=== PATIENT | male | born 1930 | race Caucasian/White ===

== ENCOUNTER 2018-09-07 04:51 | Inpatient (IN) | payer MEDICARE, OTHER ==
[2018-09-07] MEDS ORDERED: Heparin DRIP 25,000 UNITS(*) 25,000 UNITS/500 ML BAG IV SCH ×2 (05:00→06:15)
[2018-09-07 05:32] LABS: ABS Basophils 0.1 10^3/ul (0-0.2); ABS Eosinophils 0 10^3/ul (0-0.6); ABS Lymphocytes 1.5 10^3/ul (1.0-4.8); ABS Monocytes 0.9 10^3/ul (0-0.8); ABS Neutrophils 15.2 10^3/ul (1.5-7.7); ABS Nucleated RBC 0 10^3/ul; Eosinophil % 0.1 %; Hematocrit 37 % (42-52); Hemoglobin 12.2 g/dl (14.0-18.0); Lymphocyte % 8.2 %; Mean Corpuscular HGB Conc 33 g/dl (31-36); Mean Corpuscular Hemoglobin 28 pg (27-31); Mean Corpuscular Volume 86 fL (80-94); Mean Platelet Volume 8.7 fL (7.4-10.4); Nucleated Red Blood Cells % 0; Platelet Count 176 10^3/ul (150-450); Red Blood Count 4.34 10^6/ul (4.00-5.40); Red Cell Distribution Width 14 % (10.5-15); White Blood Count 17.7 10^3/ul (3.5-10.8)
[2018-09-07] MEDS ORDERED: NS 0.9% 1000 ML** 1,000 ML IV.FLUID IV ONE (05:44)
--- NOTE | 2018-09-07 05:47 | ED ---
Complex/Multi-Sys Presentation - HPI Summary HPI Summary: This patient is a 87 year old male brought to the ED by ambulance from [facility] in order to be admitted. The patient originally went there for a fever. He was found to have pna and elevated heart enzymes. He denies CP, he does have history of stents. He c/o sob. Given zithroax and losartin - History Of Current Complaint Chief Complaint: EDChestPainROMI Time Seen by Provider: 09/07/18 04:52 Hx Obtained From: Patient, EMS Onset/Duration: Still Present Timing: Constant Severity Currently: Moderate Severity Initially: Moderate Associated Signs And Symptoms: Positive: Fever, Other - SOB - Allergies/Home Medications Allergies/Adverse Reactions: Allergies Allergy/AdvReac Type Severity Reaction Status Date / Time No Known Allergies Allergy Verified 03/16/13 05:05 Home Medications: Home Medications Metoprolol Tartrate TAB* 25 mg PO DAILY 09/07/18 [History Confirmed 09/07/18] Simvastatin TAB(NF) 80 mg PO DAILY 09/07/18 [History Confirmed 09/07/18] PMH/Surg Hx/FS Hx/Imm Hx Cardiovascular History: Reports: Hx Coronary Artery Disease Respiratory History: Reports: Hx Pneumonia Neurological History: Denies: Hx Dementia, Hx Developmental Delay, Hx Headaches, Hx Migraine, Hx Nerve Disease, Hx Seizures, Hx Spinal Cord Injury, Hx Transient Ischemic Attacks (TIA), Other Neuro Impairments/Disorders Psychiatric History: Denies: Hx Suicide Attempt Infectious Disease History: No Infectious Disease History: Denies: Hx Clostridium Difficile, Hx Hepatitis, Hx Human Immunodeficiency Virus (HIV), Hx of Known/Suspected MRSA, Hx Shingles, Hx Tuberculosis, Hx Known/ Suspected VRE, Hx Known/Suspected VRSA, History Other Infectious Disease, Traveled Outside the [place] in Last 30 Days - Family History Known Family History: Negative: Diabetes, Respiratory Disease - Social History Alcohol Use: Occasionally Hx Substance Use: No Substance Use Type: Reports: None Hx Tobacco Use: No Smoking Status (MU): Never Smoked Tobacco Review of Systems Positive: Fever Negative: Chest Pain Positive: Shortness Of Breath All Other Systems Reviewed And Are Negative: Yes Physical Exam - Summary Physical Exam Summary: Appearance: Well appearing, no pain distress Skin: warm, dry, reflects adequate perfusion Head/face: normal Eyes: EOMI, RAMA ENT: normal Neck: supple, non-tender Respiratory: CTA, breath sounds present Cardiovascular: RRR, pulses symmetrical Abdomen: non-tender, soft Musculoskeletal: normal, strength/ROM intact Neuro: normal, sensory motor intact, A&Ox3 Triage Information Reviewed: Yes Vital Signs On Initial Exam: Initial Vitals Temp Pulse Resp BP Pulse Ox 98.6 F 73 18 113/55 95 09/07/18 05:03 09/07/18 05:03 09/07/18 05:03 09/07/18 05:03 09/07/18 05:03 Vital Signs Reviewed: Yes Diagnostics - Vital Signs Vital Signs Temp Pulse Resp BP Pulse Ox 09/07/18 05:03 98.6 F 73 18 113/55 95 - Laboratory Lab Results: Lab Results 09/07/18 Range/Units 05:23 WBC 17.7 H (3.5-10.8) 10^3/ul RBC 4.34 (4.00-5.40) 10^6/ul Hgb 12.2 L (14.0-18.0) g/dl Hct 37 L (42-52) % MCV 86 (80-94) fL MCH 28 (27-31) pg MCHC 33 (31-36) g/dl RDW 14 (10.5-15) % Plt Count 176 (150-450) 10^3/ul MPV 8.7 (7.4-10.4) fL Neut % (Auto) 86.0 % Lymph % (Auto) 8.2 % [place] % (Auto) 5.3 % Eos % (Auto) 0.1 % Baso % (Auto) 0.4 % Absolute Neuts (auto) 15.2 H (1.5-7.7) 10^3/ul Absolute Lymphs (auto) 1.5 (1.0-4.8) 10^3/ul Absolute Monos (auto) 0.9 H (0-0.8) 10^3/ul Absolute Eos (auto) 0 (0-0.6) 10^3/ul Absolute Basos (auto) 0.1 (0-0.2) 10^3/ul Absolute Nucleated RBC 0 10^3/ul Nucleated RBC % 0 Result Diagrams: 09/07/18 05:23 09/07/18 05:23 Lab Statement: Any lab studies that have been ordered have been reviewed, and results considered in the medical decision making process. - EKG 0547 Cardiac Rate: NL EKG Rhythm: Sinus Rhythm - at 67 BPM Summary of EKG Findings: RBBB Complex Multi-Symp Course/Dx Assessment/Plan: This patient is a 87 year old male brought to the ED by ambulance from [facility] in order to be admitted. The patient originally went there for a fever. He was found to have pna and elevated heart enzymes. He denies CP, he does have history of stents. He c/o sob. Given zithroax and losartin. I discussed patient care with Dr. Guaman and he recommended a heparin drip, dextrose, and ASA. The patient was given these . Blood work obtained. I reviewed the chart and results from his visit at [facility]. I discussed the case with the hospitalist, Dr. Singh and she has accepted the patient for admission. The patient will be admitted - Diagnoses Differential Diagnoses/HQI/PQRI: Cardiac Ischemia, Sepsis, Other - mi/pneumonia Provider Diagnoses: PNA (pneumonia), ACS (acute coronary syndrome), Sepsis associated hypotension - Critical Care Time Critical Care Time: 30-74 min Discharge - Sign-Out/Discharge Documenting (check all that apply): Patient Departure - admitted Patient Received Moderate/Deep Sedation with Procedure: No - Discharge Plan Condition: Fair Disposition: ADMITTED TO [facility] Referrals: No Primary Care Phys,NOPCP [Primary Care Provider] - - Billing Disposition and Condition Condition: FAIR Disposition: Admitted to [facility] - Attestation Statements Document Initiated by Dorise: Yes Documenting Scribe: Levy Bonds Provider For Whom Christos is Documenting (Include Credential): De Castellano MD Scribe Attestation: Levy Saunders , scribed for De Castellano MD on 09/07/18 at 0642. Scribe Documentation Reviewed: Yes Provider Attestation: The documentation as recorded by the Levy howard accurately reflects the service I personally performed and the decisions made by De alcantara MD Status of Scribe Document: Viewed
[2018-09-07 05:51] LABS: BUN/Creatinine Ratio 21.9 (8-20); Calcium 10.3 mg/dL (8.6-10.3); EGFR African American 64.2 (>60); Potassium 4.2 mmol/L (3.5-5.0)
[2018-09-07 06:00] LABS: Troponin I 4.72 ng/mL (<0.04)
[2018-09-07] MEDS ORDERED: Heparin DRIP 25,000 UNITS(*) 25,000 UNITS/500 ML BAG ONE (06:06)
[2018-09-07] MEDS ORDERED: NS 0.9% 1000 ML** 1,000 ML IV SCH (09:00)
[2018-09-07] MEDS ORDERED: Perflutren Lipid Microsphere* 3 ML VIAL ONE (09:52)
--- NOTE | 2018-09-07 10:28 | ECHO ---
Patient: JORGE URIBE [facility] Rec#: [id number] : 1930 Date: 09/07/2018 Age: 87y Height: 183 cm / 72.0 in Weight: 81 kg / 178.5 lbs Sex: M BSA: 2.03 Room#: ED8 Admit Date#: 09/07/2018 Type: Inpatient Referring: De Castellano Reading: Kelby Guaman DO Educational Assistant Teacher: Opal Hilario RDCS CC: Ernestine Biggs MD Transthoracic Echocardiogram Indication: OK BP: 92/46 HR: 66 Rhythm: NSR Findings History: CAD,s/pPCI,former smoker. Technical Comments: The study quality is good. Completed at 0827. Definity used to enhance images. Left Ventricle: The left ventricular chamber size is normal. Mild concentric left ventricular hypertrophy is observed. There is normal left ventricular systolic function. The estimated ejection fraction is 55-60%. with basal to mid inferior hypokinesis Abnormal left ventricular diastolic function is observed. Left Atrium: The left atrium is mildly dilated. Right Ventricle: The right ventricular cavity size is normal. The right ventricular global systolic function is mildly reduced. Right Atrium: The right atrium is mild to moderately dilated. Aortic Valve: The aortic valve is trileaflet. There is a trace of aortic regurgitation. There is no evidence of aortic stenosis. Mitral Valve: The mitral valve leaflets are mildly thickened. There is trace to mild mitral regurgitation. There is no evidence of mitral stenosis. Tricuspid Valve: The tricuspid valve leaflets are normal. There is trace tricuspid regurgitation. Unable to estimate the right ventricular systolic pressure. There is no tricuspid stenosis. Pulmonic Valve: The pulmonic valve appears normal. There is no evidence of pulmonic regurgitation. There is no pulmonic stenosis. Pericardium: The pericardium is not well visualized. Aorta: There is no dilatation of the aortic arch. There is no dilation of the aortic root. Pulmonary Artery: The main pulmonary artery is not well visualized. Venous: The venous system is not well visualized. Contrast: Definity was used to optimize study. A total of 3.5ml used. Intravenous contrast was used to enhance endocardial border definition. Conclusions The left ventricular chamber size is normal. Mild concentric left ventricular hypertrophy is observed. There is normal left ventricular systolic function. The estimated ejection fraction is 55-60% with basal to mid inferior hypokinesis The left atrium is mildly dilated. The right ventricular cavity size is normal. The right ventricular global systolic function is mildly reduced. No significant valvular abnormalities noted Unable to estimate the right ventricular systolic pressure. Definity was used to optimize study. Compared to prior study from 06/2017, the RV function is now mildly hypokinetic Measurements Name Value Normal Range RVIDd (AP) 2D 3.2 cm (0.9 - 2.6) RVDdMajor (2D) 3.4 cm (2.2 - 4.4) RAd ISD 4CH 6.1 cm (3.4 - 4.9) RA (A4C)W 5 cm (2.9 - 4.6) IVSd (2D) 1.3 cm (0.6 - 1) LVPWd (2D) 1.3 cm (0.6 - 1) LVIDd (2D) 3.8 cm (3.6 - 5.4) LVIDs (2D) 3.1 cm - LV FS (2D) 18 % (25 - 45) Aortic Annulus 2.2 cm (1.4 - 2.6) Ao root diameter (2D) 3.2 cm (2.1 - 3.5) Ascending Ao 3.5 cm (2.1 - 3.4) Aortic arch 2.9 cm (1.8 - 3.4) Descending Ao 0.5 cm - LA dimension (AP) 2D 4.3 cm (2.3 - 3.8) LAd ISD 4CH 5.8 cm (2.9 - 5.3) LA ISD 4CH W 4 cm (2.5 - 4.5) Name Value Normal Range LA ESV SP 4CH (A/L) 29 ml - LA ESV SP 2CH (A/L) 28 ml - LA ESV BP (A/L) index 28.6 ml/m2 - Name Value Normal Range MV E-wave Vmax 0.8 m/sec - MV deceleration time 211 msec - MV A-wave Vmax 0.7 m/sec - MV E:A ratio 1.1 ratio - LV septal e' Vmax 0.5 m/sec - LV lateral e' Vmax 0.08 m/sec - LV E:e' septal ratio 16 ratio - LV E:e' lateral ratio 10 ratio - Name Value Normal Range AV Vmax 14.3 m/sec - AV VTI 27.4 cm - AV peak gradient 7 mmHg - AV mean gradient 4 mmHg - LVOT Vmax 0.9 m/sec - LVOT VTI 21.7 cm - LVOT peak gradient 3 mmHg - LVOT mean gradient 1 mmHg - Name Value Normal Range PV Vmax 0.7 m/sec - PV peak gradient 2 mmHg -
[2018-09-07] MEDS ORDERED: Clopidogrel TAB* 300 MG PO ONE (10:32)
[2018-09-07] MEDS: Metoprolol Tartrate TAB* 25 MG PO SCH ×3 (11:08→23:37)
--- NOTE | 2018-09-07 12:51 | HP ---
HISTORY AND PHYSICAL: DATE OF ADMISSION: 09/07/18 ADMITTING PROVIDER: Jamal Mendez MD CONSULTING CHAIRMAN: Dr. Kelby Guaman. PRIMARY CARE PHYSICIAN: Dr. Ernestine Biggs. CHIEF COMPLAINT: Rigors, fever, chills, epigastric pain radiating to the back. HISTORY OF PRESENT ILLNESS: Romulo Bradley is an 87-year-old male with past medical history of CAD with stents to the LAD and RCA in 2012, peripheral vascular disease, hypertension, hyperlipidemia, and at least a 100-pack year former smoker. He is notably a poor historian, but reports that he developed fevers, chills and then rigors around 10 p.m. the day before admission and presented to the [facility] where he had elevated troponin of 1.86 and chest x-ray concerning for potential pneumonia. He was transferred to [facility] for further evaluation and referred to the hospitalist service for admission. His second troponin here was 4.72 and ED physicians talked to [employer] Operator Dr. Kelby Guaman, who recommended initially a heparin drip and aspirin. The patient says that he had his friend, Musa, check his temperature and it was eventually as high as 100.8. He complains of "croup" which he more specifically means a mild burning sensation in his epigastric or lower chest that radiated to his back that has since resolved and he is frankly rather unclear on the timing of this. Musa, his friend also noted that he seemed more pale. He initially had a leukocytosis of 20.5 at [place] where he was started on ceftriaxone and azithromycin there along with aspirin 325mg. He has been put on heparin drip. He has since gotten repeat troponin of 5.51 and transthoracic echocardiogram, which is demonstrating preserved EF 55% to 60% with basal to mid inferior hypokinesis, unchanged from prior. He is denying any chest pain or shortness of breath at this time. He did not get a flu shot this year. Denies sick contacts. Last A1c was 6.6 in September 2017, LDL 47, HDL 36 at [address] Howard on 12/15/17, at that point she believed he was on aspirin 81 mg daily. He denies that he is taking this currently. He does not know who stopped it or cannot give reasons why it was stopped. Repeat chest x-ray here was read as cardiomegaly with bibasilar atelectasis, right lower lobe pneumonia is not excluded. He is afebrile and lactic acid is 1.3. PAST MEDICAL HISTORY: CAD with RCA stent, LAD stent, 2012; hyperlipidemia; hypertension; adn-tmyyaev-pylnqnpbk diabetes mellitus with A1c 6.6 in September 2017; peripheral vascular disease; as well as some [id number]-cqwpilaj carotid artery disease and reported abdominal bruits in the past. MEDICATIONS: Include: 1. Metoprolol 25 mg daily. 2. A statin, he does not know which one, but previously was on simvastatin 80 mg, Dr. Howard's office. ALLERGIES: No known drug allergies. FAMILY HISTORY: His father of myocardial infarction in his 70s. His mother lived to be 110, of old age. SOCIAL HISTORY: The patient is a former smoker, quit at age 61, smoked between his late teens until then 2 to 3 packs per day, approximately 100-pack year. Denies alcohol use, drug use. He is accompanied by his son, Damion. He desires to be a full code. REVIEW OF SYSTEMS: A complete 14-point review of systems negative except as per HPI. He has a cough that was nonproductive. PHYSICAL EXAMINATION GENERAL APPEARANCE: No acute distress. VITAL SIGNS: Temperature 98.4, heart rate 62, respiratory rate 20, satting 95% on 2 L, blood pressure 104/51. HEENT: Normocephalic, atraumatic. Pupils are equal, round, and reactive to light. Extraocular motions intact. No scleral icterus. LUNGS: Clear to auscultation bilaterally with no wheezing, rales, or rhonchi. CARDIOVASCULAR: Regular rate and rhythm with no murmurs, rubs, or gallops. ABDOMEN: Soft, nontender, nondistended. EXTREMITIES: Warm and well perfused. No peripheral edema. NEURO: Cranial nerves II through XII intact. Moving all extremities. SKIN: No lesions. No rashes. DIAGNOSTIC STUDIES/LAB DATA: White count 17.7, hemoglobin 12.2, hematocrit 37 , platelets 176. Sodium 135, potassium 4.2, chloride 104, carbon dioxide 23, BUN 28, creatinine 1.28, glucose 159, lactic acid 1.3. Troponin 1.8 -> 4.72 -> 5.51. Calcium 10.3. Imaging: Chest x-ray demonstrates cardiomegaly with bibasilar atelectasis, right lower lobe pneumonia is not excluded. His transthoracic echocardiogram has since been performed, shows EF of 55% to 60 % with basal to mid inferior hypokinesis(unchanged). No significant valvular abnormalities. RV function is now mildly hypokinetic compared to last in June 2017. The EKG demonstrates right bundle branch block, normal sinus rhythm, T-wave inversions inferiorly. No ST elevations or depressions. Similar to prior. Heart rate 67, left axis deviation, QTc of 433. ASSESSMENT AND PLAN: Romulo Bradley is an 87-year-old male with past medical history of hypertension; coronary artery disease, status post LAD and RCA stents ; shx-thmypzm-pednsbows diabetes mellitus; peripheral vascular disease; 100- pack year former smoker, presenting with rigors, fevers, chills, leukocytosis and chest x-ray concerning for possible right-sided pneumonia, also complaint ( though of unclear timeline) of epigastric pain radiating to his back associated with mild burning that has since resolved, troponin elevation now up to 5.5. Appreciate recommendations from Dr. Kelby Guaman, who recommended heparin drip. He is now recommended cessation of that after the echocardiogram was done and evaluation of the EKG and starting him on Plavix 300 mg daily now and then 75 mg daily for at least 30 days with consideration for stress test as an outpatient. For his pneumonia, we will continue him on ceftriaxone and azithromycin. For the non-ST elevation myocardial infarction,add metoprolol 25 mg p.o. q.6 hours, Lipitor 80 mg daily and baby aspirin daily, telemetry. For the pneumonia he has no lactic acidosis; systemic inflammatory response syndrome criteria include leukocytosis but otherwise does not meet. Will continue on ceftriaxone and azithromycin, get a sputum culture. Get Physical Therapy to see him likely tomorrow Given his peripheral vascular disease, vascular risk factors and his epigastric abdominal pain radiating to his back that has since resolved, I have ordered an abdominal aortic ultrasound to rule out ectasia (Addendum: US department would not do this study given his primary diagnosis of pneumonia/NSTEMI and recommended outpatient evaluation instead). He does have elevated creatinine of 1.28 above his baseline of 1, GFR is currently 53. I would like to avoid IV contrast unless necessary. We will get CBC, BMP daily, and troponins. We will trend those until peak, appreciate any additional Cardiology recommendations. He is a full code and his next of kin is Marty Bradley, his ; also at bedside is his son, Damion. [id number]/[facility] #: [id number] RACIEL
--- NOTE | 2018-09-07 14:13 | CONSULT ---
Subjective Date of Service: 09/07/18 Interval History: Date of consult 09/07/2018 Primary Care Physician: Ernestine Biggs MD Regional Account Executive: Dr. Roxanne Howard CC: Cough, fever Reason for consult: Abnormal troponin level CC: Romulo Bradley is an 87 year old man with a history as below who was admitted with progressive fever, cough non-productive, chest/back pain, rigors associated with uncontrolled urine. He was found with a right lower lobe pneumonia. He states his symptoms did not at all resemble his 03/2013 SD in which he had arm discomfort as presenting symptom and this was supported by review of prior documentation. He was found with an abnormal troponin level. I had an extensive conversation with the patient and his son at bedside and his about the clinical relevance of this finding. He has received IV antibiotics and fluids and is feeling better. He is eating lunch and was able to ambulate to the bathroom without symptoms. Prior this admission he has been at his baseline health status. PMHx: CAD, SD s/p PCI PAD HTN Dyslipidemia Anemia Allergies: No Known Drug Allergy 07/09/13 allergy list reviewed on 12/15/2017 FH: Negative For Coronary Artery Disease (CAD). Father: Pacemaker Negative For Coronary Artery Disease (CAD) - Family hx of longevity. 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 Personal Habits: Smoking: Patient is a former smoker - quit smoking cigarettes in 1991.Alcohol: Rarely consumes alcohol - 1-2 times a year.Drug Use: Denies Drug Use. Medications Active Medications: Aspirin (Aspirin 81 Mg Chew Tab*) 81 mg PO DAILY [facility] Atorvastatin Calcium (Lipitor*) 80 mg PO 1700 [facility] Clopidogrel Bisulfate (Plavix Tab*) 75 mg PO DAILY MELVI Had been on heparin gtt earlier this AM Was given 300 mg po of plavix x 1 earlier today Ceftriaxone Sodium 1 gm/ (Sodium Chloride) 50 mls @ 200 mls/hr IVPB Q24H [facility] Azithromycin 500 mg/ Sodium (Chloride) 250 mls @ 250 mls/hr IVPB Q24H [facility] Sodium Chloride (Ns 0.9% 1000 Ml) 1,000 mls @ 125 mls/hr IV PER RATE [facility] Stop: 09/07/18 18:59 Metoprolol Tartrate (Lopressor Tab*) 25 mg PO Q6H [facility] Last Admin: 09/07/18 11:08 Dose: 25 mg Home Medications: aspirin 81 mg lipitor 40 mg once a day toprol 25 mg po daily at night Review of Systems - Measurements Intake and Output: Intake and Output Last 24 Hours 09/05/18 09/06/18 09/07/18 09/08/18 06:59 06:59 06:59 06:59 Intake Total 2450 Balance 2450 Weight 180 lb Intake: IV Fluids 2450 - Review of Systems Constitutional Symptoms: Positive: Weakness, Fatigue, Fever Dermatology: Negative: Rash, Skin Lesions HEENT: Positive: Change in Hearing Negative: Vertigo, Tinnitus, Sinus Problem Eyes: Negative: Change in Vision, Double Vision Thyroid: Negative: Primary Hypothyroidism, Primary Hyperthyroidism, Weight Loss, Weight Gain Pulmonary: Positive: Cough, Respiratory Distress, Shortness of Breath Negative: Sputum, Hemoptysis, Wheezing, COPD, Asthma, Home Oxygen Cardiology: Positive: Chest Pain, Shortness of Breath Negative: Palpitations, Swelling of Ankles, Peripheral Vascular Dis, Edema, Faintness, Syncope, Claudication, Paroxysmal Nocturnal Dyspnea, Orthopnea Gastroenterology: Negative: Abdominal Pain, Nausea, Vomiting, Haematemesis, Melena Genital - Urinary: Negative: Dysuria, Hematuria Musculoskeletal: Negative: Joint Pain, Joint Stiffness, Joint Deformities, Kyphoscoliosis Endocrinology: Negative: Polydipsia, Polyuria Hematologic/Lymphatic: Positive: Use of Antiplatelet Drugs Negative: Hx Leukemia, Hx Lymphoma, Use of Anticoagulant Neurology: Negative: Diplopia, Dizziness, Hx of Stroke\TIA, Hx Seizures Psychiatry: Negative: Unusual Anxiety, Suicidal Ideation Allergic/Immunologic: Negative: Hx Anaphylaxis, Hx Angioedema, Hx HIV, Immunocompromise Review of Systems Statement: All other review of systems negative, unless stated above. Objective Vital Signs: Temp Pulse Resp BP Pulse Ox 98.4 F 56 20 104/51 95 09/07/18 10:29 09/07/18 10:29 09/07/18 10:29 09/07/18 10:29 09/07/18 10:29 Appearance: nad, not toxic appearing Ears/Nose/Mouth/Throat: Clear Oropharnyx, Mucous Membranes Moist Neck: NL Appearance and Movements; NL JVP, Trachea Midline Respiratory: - - mild tachypnea with no increased work of breathing, conversant , prominent coarse crackles R lower lung field Cardiovascular: RRR, No Edema, - - no significant murmur Abdominal: NL Sounds; No Tenderness; No Distention Extremities: No Edema Skin: No Rash or Ulcers Neurological: Alert and Oriented x 3 Laboratory Results: 09/07/18 05:23 09/07/18 05:23 APTT 63.3 seconds (26.0-36.3) H 09/07/18 10:51 09/07/18 09/07/18 09/07/18 05:23 09:02 12:28 Troponin I 4.72 H* 5.51 H* 3.67 H* 09/27/2017 showed total cholesterol 104, triglycerides 104, LDL cholesterol 47, HDL cholesterol 36, and CK 66. Sodium 140, potassium 4.5, glucose 109, BUN 17, creatine 1.01, AST of 15. White count 7.5, hemoglobin 15.3, hematocrit 46, and platelets 173. hemoglobin A1C 6.6. Diagnostic Imaging: Echocardiogram - (07/06/2017) EF 50-55%, IW scar, mild MR. Echocardiogram - (03/17/2013) EF 45%, IW akinesis, moderate MR. Carotid Doppler - (04/02/2013) Mod TAY, mild LICA Cardiac Procedures: Cardiac Catheterization - (03/15/2013) s/p PCI to RPL branch (received collaterals from non-dominant Lcx) and pRCA (culprits) Cardiac Catheterization - (03/18/2013) Staged PCI to prox-mid LAD Reviewed films with Dr. Diallo, has residual borderline significant but not suitable for PCI small vessel diagonal/septal/distal RCA disease cxr 09/07/2018: Cannot exclude RLL pneumonia Echo 09/07/2018: LVEF 55-60% basal-mid inferior wall hypokinesis (unchanged from 06/2017(, mild RV dysfunction (new since 06/2017), no significant valvular abnormalities noted EKG Data: EKG 09/07/2018: NSR, LAE, RBBB, old IWMI, grossly unchanged on repeat and grossly unchanged from prior on 06/2017 Assessment/Plan 1. Type 2 SD - No angina (arm discomfort), hemodynamic instability, or arrhythmias - Enzymatically small, echo and EKG unchanged from prior, LVEF overall normal - Secondary to #2 2. RLL pneumonia 3. History of anemia, details uncertain - No active bleeding 4. Other medical history as above - Would continue [employer] aspirin, statin and beta-yamileth - Would add plavix 75 mg po daily for at least a month and preferably a year if no contraindications - Patient should follow up with Dr. Howard after discharge. Once further recovered from pneumonia can consider an ischemic evaluation as an outpatient. Thank you for allowing me to participate in the cardiovascular care of this patient. Please do not hesitate to contact me with questions or concerns.
[2018-09-07] MEDS ORDERED: Atorvastatin* 80 MG TAB PO SCH (17:00)
[2018-09-07] MEDS ORDERED: Azithromycin IV(*) 500 MG in NS 0.9% 250 ML* 250 ML IVPB SCH (20:00)
[2018-09-07] MEDS ORDERED: cefTRIAXone(*) 1 GM in NS 0.9% 50 ML* 50 ML IVPB SCH (21:00)
[2018-09-08] MEDS: Metoprolol Tartrate TAB* 25 MG PO SCH ×2 (05:20→10:53)
[2018-09-08 05:29] LABS: ABS Basophils 0 10^3/ul (0-0.2); ABS Eosinophils 0.1 10^3/ul (0-0.6); ABS Lymphocytes 1.2 10^3/ul (1.0-4.8); ABS Monocytes 0.7 10^3/ul (0-0.8); ABS Neutrophils 7.8 10^3/ul (1.5-7.7); ABS Nucleated RBC 0 10^3/ul; Eosinophil % 1.2 %; Hematocrit 36 % (42-52); Hemoglobin 11.7 g/dl (14.0-18.0); Lymphocyte % 12.2 %; Mean Corpuscular HGB Conc 33 g/dl (31-36); Mean Corpuscular Hemoglobin 29 pg (27-31); Mean Corpuscular Volume 87 fL (80-94); Mean Platelet Volume 8.9 fL (7.4-10.4); Nucleated Red Blood Cells % 0; Platelet Count 156 10^3/ul (150-450); Red Cell Distribution Width 15 % (10.5-15); White Blood Count 9.8 10^3/ul (3.5-10.8)
[2018-09-08 05:34] LABS: BUN/Creatinine Ratio 20.8 (8-20); Calcium 9.7 mg/dL (8.6-10.3); EGFR African American 79.8 (>60); EGFR Non-African American 65.9 (>60); Potassium 4.2 mmol/L (3.5-5.0)
[2018-09-08] MEDS ORDERED: Clopidogrel TAB* 75 MG PO SCH (09:00)
[2018-09-08] MEDS ORDERED: Aspirin 81 mg CHEW TAB* 81 MG TAB.CHEW PO SCH (09:00)
[2018-09-08 11:53] VITALS: BP 146/43
--- NOTE | 2018-09-08 16:29 | DS ---
DISCHARGE SUMMARY: DATE OF ADMISSION: 09/07/18 DATE OF DISCHARGE: 09/08/18 ATTENDING PROVIDER: Jamal Mendez MD CONSULTING SECURITIES TRADER: Kelby Guaman DO PRIMARY CARE PHYSICIAN: Dr. Ernestine Biggs. OUTPATIENT SECURITIES TRADER: Dr. Roxanne Howard. CHIEF COMPLAINT: Rigors, fevers, chills, brief epigastric pain radiating to the back. PRINCIPAL DIAGNOSES: Sepsis secondary to Pneumonia; non-ST elevation myocardial infarction. HISTORY OF PRESENT ILLNESS AND HOSPITAL COURSE: Rmoulo Bradley is an 87-year- old male with past medical history of CAD with stents to the LAD and RCA in 2013 , peripheral vascular disease, hypertension, hyperlipidemia, former (100 pack year) smoker. Please see H&P for full details, but notably he is a poor historian, but developed fevers, chills, rigors, and presented to [facility] on 09/06/18. There he had a chest x-ray, which was reportedly concerning for potential pneumonia. There he had a leukocytosis at 20, fevers in the low 100s and the troponin elevation at 1.86. Given that troponin elevation, he was transferred [facility] for further access to the cardiology evaluation, which was obtained with Dr. Kelby Guaman, who initially recommended heparin drip. He got aspirin, continued statin, continued beta-blockers. Troponin eventually peaked at 5.5. He denied any chest pain. He did give an unclear history of some epigastric or lower chest pain radiating to his back that had resolved by the time he got here. He got ceftriaxone, azithromycin at [place] that was continued here. His leukocytosis resolved by hospital day #2 here, he is on room air, afebrile. Strep Legionella urine antigens were negative. He has not been able to provide a sputum sample. Blood cultures where not obtained here as he had already gotten antibiotics at the outside hospital and was afebrile here. He had no ischemic EKG changes and he got a transthoracic echocardiogram which showed ejection fraction of 55% to 60% with basal to mid inferior hypokinesis, unchanged from prior studies and some right ventricular global systolic function mildly reduced, which is new from prior studies. No significant valvular abnormalities. He worked with physical therapy, was able to ambulate at his baseline and transfer stairs. Dr. Guaman recommended for a suspected type 2 demand ischemia NSTEMI, initiation of Plavix , he got loaded 300 mg and 75 mg daily thereafter for at least 30 days, but potentially up to a year and consideration for further ischemic evaluation as an outpatient could be entertained by Dr. Howard. Notably, he was not taking his baby aspirin for unclear reason. His last outpatient electrical parts reconditioner's note from Dr. Howard from December 2017 seem to indicate he should be on that at that time. He had a slight bump in his creatinine to 1.8 on admission, improved to 1.06 on day of discharge. DISCHARGE MEDICATIONS: Include: 1. Aspirin 81 mg daily (new). 2. Plavix 75 mg daily (new). 3. Augmentin 875 mg p.o. b.i.d. for 10 tablets or 5 days (new). 4. Azithromycin 250 mg p.o. daily for 3 days (new). 5. Metoprolol tartrate 25 mg daily. 6. Simvastatin 80 mg daily. DISCHARGE DIET: Carbohydrate consistent, heart healthy, unchanged. FOLLOWUP: Please follow up with Dr. Ernestine Biggs, his PCP within the 4 to [address] Roxanne Howard within 1 to 2 weeks. I do recommend a potential consideration for abdominal ultrasound to rule out abdominal aortic aneurysm, given the transient epigastric pain radiating to his back. This was initially ordered here in the hospital, but was not considered to be reimbursable and therefore it was not performed by the radiology department. TIME SPENT: Time spent on discharge was 35 minutes. [id number] #: [id number] MTDD
== END 2018-09-08 16:11 | disposition home or self-care (01) | DRG 871 ==
LOC: ED 04:51 → MEDTELE 07:53
PROVIDERS: ADMIT Internal Medicine; ATTEND Internal Medicine
DX: A41.9 Sepsis, unspecified organism (principal); I21.A1 Myocardial infarction type 2; J18.1 Lobar pneumonia, unspecified organism; I25.10 Atherosclerotic heart disease of native coronary artery without angina pectoris; I10 Essential (primary) hypertension; E11.51 Type 2 diabetes mellitus with diabetic peripheral angiopathy without gangrene; I45.10 Unspecified right bundle-branch block; E78.5 Hyperlipidemia, unspecified; Z87.891 Personal history of nicotine dependence; Z95.5 Presence of coronary angioplasty implant and graft; Z79.02 Long term (current) use of antithrombotics/antiplatelets; Z79.82 Long term (current) use of aspirin; Z82.49 Family history of ischemic heart disease and other diseases of the circulatory system; Z72.89 Other problems related to lifestyle
CPT/HCPCS: 36415; 71045; 80048; 83605; 84484; 85025; 85730; 87899; 93005; 93306; 99284; A9270-GY; C8929; G8978-GP-CI; G8979-GP-CI; G8980-GP-CI; J0456; J0696

== ENCOUNTER 2018-12-27 19:04 | Inpatient (IN) | payer MEDICARE ==
[2018-12-27] MEDS ORDERED: NS 0.9% 1000 ML** 1,000 ML IV.FLUID IV ONE (19:23)
--- NOTE | 2018-12-27 19:34 | ED ---
Dizziness - HPI Summary HPI Summary: Pt is an 88 y/o M presenting to the ED brought in by EMS for a fall. Per EMS, they were called for a lift assist by the patients roommate d/t multiple falls in the past couple of hours with increased weakness. Upon EMS arrival, they noted severe confusion of the pt. Per the pts son, he had PNA last year, and since being on the abx, he has had some issues with confusion and imbalance. Pt states he has been feeling up and down recently, with noted dizziness, nausea , and some leg pains that wake him up in the night. He denies headaches or vomiting. - History Of Current Complaint Chief Complaint: EDFever Stated Complaint: "FALL PER EMS" Time Seen by Provider: 12/27/18 19:17 Hx Obtained From: Patient Onset/Duration: Suddenly Timing: Hours Severity Initially: Moderate Severity Currently: Mild Character: Weak, Dizzy Aggravating Factor(s): Nothing Alleviating Factor(s): Nothing Associated Signs And Symptoms: Positive: Nausea, Unsteady Gait, Other: - confusion. Negative: Vomiting - Allergies/Home Medications Allergies/Adverse Reactions: Allergies Allergy/AdvReac Type Severity Reaction Status Date / Time No Known Allergies Allergy Verified 03/16/13 05:05 PMH/Surg Hx/FS Hx/Imm Hx Previously Healthy: Yes Cardiovascular History: Reports: Hx Coronary Artery Disease Denies: Hx Peripheral Vascular Disease Respiratory History: Reports: Hx Pneumonia Sensory History: Reports: Hx Contacts or Glasses, Hx Hearing Aid, Hx Hearing Problem Opthamlomology History: Reports: Hx Contacts or Glasses Neurological History: Denies: Hx Dementia, Hx Developmental Delay, Hx Headaches, Hx Migraine, Hx Nerve Disease, Hx Seizures, Hx Spinal Cord Injury, Hx Transient Ischemic Attacks (TIA), Other Neuro Impairments/Disorders Psychiatric History: Denies: Hx Suicide Attempt Infectious Disease History: Unable to Obtain/Confirm Infectious Disease History: Denies: Hx Clostridium Difficile, Hx Hepatitis, Hx Human Immunodeficiency Virus (HIV), Hx of Known/Suspected MRSA, Hx Shingles, Hx Tuberculosis, Hx Known/ Suspected VRE, Hx Known/Suspected VRSA, History Other Infectious Disease, Traveled Outside the [place] in Last 30 Days - Family History Known Family History: Negative: Diabetes, Respiratory Disease - Social History Alcohol Use: Rare Hx Substance Use: No Substance Use Type: Reports: None Hx Tobacco Use: No Smoking Status (MU): Former Smoker Type: Cigarettes Review of Systems Positive: Nausea. Negative: Vomiting Positive: Myalgia, Other - imbalance Neurological: Other - dizziness Negative: Headache Positive: Other - confusion All Other Systems Reviewed And Are Negative: Yes Physical Exam - Summary Physical Exam Summary: Appearance: Ill-appearing, Well-nourished, lying in bed comfortably. Mild hypoxemia, BP is good. Skin: Warm, dry, no obvious rash Eyes: sclera anicteric, no conjunctival pallor ENT: mucous membranes moist, pharynx appears normal Neck: Supple, nontender Respiratory: Clear to auscultation, no signs of respiratory distress Cardiovascular: Mild tachycardia S1, S2. No murmurs. Normal distal pulses in tibial and radial bilaterally. Abdomen: Soft, nontender, normal active bowel sounds present Musculoskeletal: Normal, Strength/ROM Intact Neurological: A&Ox3, awake and alert, mentation is normal, speech is fluent and appropriate Psychiatric: affect is normal, does not appear anxious or depressed Triage Information Reviewed: Yes Vital Signs On Initial Exam: Initial Vitals Temp Pulse Resp BP Pulse Ox 101.5 F 102 16 165/84 90 12/27/18 19:15 12/27/18 19:15 12/27/18 19:15 12/27/18 19:15 12/27/18 19:15 Vital Signs Reviewed: Yes Diagnostics - Vital Signs Vital Signs Temp Pulse Resp BP Pulse Ox 12/27/18 19:15 101.5 F 102 16 165/84 90 - Laboratory Result Diagrams: 01/01/19 05:36 12/31/18 06:25 Lab Statement: Any lab studies that have been ordered have been reviewed, and results considered in the medical decision making process. - Radiology CXR Radiology Interpretation Completed By: ED Physician Summary of Radiographic Findings: No acute process. Pending official radiology report. Dizzy Course/Dx - Course Course Of Treatment: Pt is an 88 y/o M presenting to the ED brought in by EMS for multiple falls in the past couple of hours. EMS reports increased confusion and weakness upon arrival. Per the pts son, he had PNA last year, and since being on the abx, he has had some issues with confusion and imbalance. Pt states he has been feeling up and down recently, with noted dizziness, nausea , and some leg pains that wake him up in the night. He denies headaches or vomiting. Upon exam, the pt has some tachycardia and hypoxemia as well as looking somewhat ill, but his BP is good and the rest of the PE is normal. Pt s hematology shows Hgb of 13.2 and Hct of 40. His chemistry shows Sodium of 132 , Chloride of 98, Creatinine of 1.23, Total bilirubin of 1.70, and alkaline phosphate of 118. CXR shows no acute process. He will be [place] [facility] with a dx of fever and metabolic encephalopathy. - Diagnoses Provider Diagnoses: Fever, Metabolic encephalopathy Discharge - Sign-Out/Discharge Documenting (check all that apply): Patient Departure Patient Received Moderate/Deep Sedation with Procedure: No - Discharge Plan Condition: Stable Disposition: ADMITTED TO [facility] - Billing Disposition and Condition Condition: STABLE Disposition: Admitted to [facility] - Attestation Statements Document Initiated by Christos: Yes Documenting Scribe: Elo Huertas Provider For Whom Christos is Documenting (Include Credential): Brandan Coley MD. Scribe Attestation: Elo Saunders scribed for Brandan Coley MD. on 01/01/19 at 1826. Scribe Documentation Reviewed: Yes Provider Attestation: The documentation as recorded by the Elo howard accurately reflects the service I personally performed and the decisions made by , Brandan Coley MD. Status of Scribe Document: Viewed
[2018-12-27] MEDS ORDERED: Acetaminophen TAB* 325 MG PO ONE (19:44)
[2018-12-27 20:24] LABS: ABS Basophils 0.1 10^3/ul (0-0.2); ABS Lymphocytes 0.8 10^3/ul (1.0-4.8); ABS Monocytes 0.4 10^3/ul (0-0.8); ABS Neutrophils 7.8 10^3/ul (1.5-7.7); Hematocrit 40 % (42-52); Hemoglobin 13.2 g/dL (14.0-18.0); Lymphocyte % 8.5 %; Mean Corpuscular HGB Conc 33 g/dL (31-36); Mean Corpuscular Hemoglobin 28 pg (27-31); Mean Corpuscular Volume 85 fL (80-94); Mean Platelet Volume 8.5 fL (7.4-10.4); Nucleated Red Blood Cells % 0.1; Platelet Count 178 10^3/uL (150-450); Red Blood Count 4.75 10^6 /uL (4.18-5.48); Red Cell Distribution Width 15 % (10.5-15); White Blood Count 9.1 10^3/uL (3.5-10.8)
[2018-12-27 20:34] LABS: Activated Partial Thrombo Time 27.1 seconds (26.0-36.3); INR 1.08 (0.82-1.09)
[2018-12-27 20:37] LABS: Troponin I 0.03 ng/mL (<0.04)
[2018-12-27 20:45] LABS: Albumin 4.3 g/dL (3.2-5.2); Albumin/Globulin Ratio 1.3 (1-3); BUN/Creatinine Ratio 18.7 (8-20); C Reactive Protein 1.19 mg/L (<8.01); Calcium 10.3 mg/dL (8.6-10.3); EGFR Non-African American 55.4 (>60); Globulin 3.2 g/dL (2-4); Potassium 3.9 mmol/L (3.5-5.0); Total Bilirubin 1.7 mg/dL (0.2-1.0); Total Protein 7.5 g/dL (6.4-8.9)
[2018-12-27 21:00] LABS: Urine Appearance Clear; Urine Bacteria 1+ (Absent); Urine Bilirubin Negative (Negative); Urine Blood 2+ (Negative); Urine Color Straw; Urine Glucose Negative (Negative); Urine Ketones Trace (Negative); Urine Nitrite Negative (Negative); Urine Protein Negative (Negative); Urine Red Blood Cell Trace(0-2/hpf) (Absent); Urine Urobilinogen Negative (Negative); Urine White Blood Cell Trace(0-5/hpf) (Absent)
[2018-12-27] MEDS ORDERED: cefTRIAXone(*) 1 GM in NS 0.9% 50 ML* 50 ML IVPB ONE (22:19)
[2018-12-27] MEDS ORDERED: Cefepime(*) 1 GM in NS 0.9% 50 ML* 50 ML IVPB ONE (22:22)
[2018-12-27] MEDS ORDERED: Vancomycin(*) 1,000 MG in NS 0.9% 250 ML* 250 ML IVPB ONE (22:23)
[2018-12-27] MEDS ORDERED: NS 0.9% 50 ML* 50 ML ONE (22:45)
[2018-12-27] MEDS ORDERED: Cefepime 2 GM in Dextrose(*) 0 GM/0 ML BAG IV ONE (22:46)
[2018-12-27] MEDS ORDERED: Ondansetron INJ* 2 MG/ML VIAL IV PRN (22:58)
[2018-12-27] MEDS ORDERED: Al Hydrox/Mg Hydrox/Simet LIQ* 30 ML UDC PO PRN (22:58)
[2018-12-27] MEDS ORDERED: Senna TAB PO PRN (22:58)
[2018-12-27] MEDS ORDERED: Acetaminophen TAB* 325 MG PO PRN (22:58)
[2018-12-27] MEDS ORDERED: Docusate CAP* 100 MG PO PRN (22:58)
[2018-12-27] MEDS ORDERED: Cefepime 1 GM in Dextrose(*) 1 GM/50 ML q12h (Duplex) IV ONE (23:00)
[2018-12-28 00:02] LABS: Influenza A Molecular NEGATIVE (Negative); Influenza B Molecular NEGATIVE (Negative)
[2018-12-28] MEDS: Lactated Ringers 1000 ML Bag* 1,000 ML IV SCH ×2 (00:50→15:32)
--- NOTE | 2018-12-28 01:03 | HP ---
CC: Dr. Ernestine Biggs * HISTORY AND PHYSICAL: DATE OF ADMISSION: 12/27/18 TIME OF EVALUATION: 2300 PRIMARY CARE PHYSICIAN: Dr. Ernestine Biggs. CHIEF COMPLAINT: Fever, weakness, and fall. HISTORY OF PRESENT ILLNESS: This is an 88-year-old male with a past medical history of hypertension, CAD, and diet-controlled diabetes, who presented to the emergency room after having weakness and fall. The patient does not remember falling. His son who was at the bedside was not there, was told that he had 2 episodes where he fell today. He lives with his roommate, Isaak Vigil, who after the patient fell the second time was worried about getting him up and injuring himself and the patient, he decided to call the EMS for further evaluation. On arrival, EMS noted his sats were 88% on room air and he was febrile. He was brought to the emergency room for further evaluation. In the emergency room, the patient had labs, imaging. He was given 2200 mL of normal saline, Tylenol, vancomycin, and cefepime, and referred to the hospitalist service for further evaluation. The patient does seem somewhat confused and not able to articulate what exactly is going on. He states he was not eating well today, some nausea, no vomiting. He has had constipation. Denies any chest pain or shortness of breath or cough. No congestion. He states he had pain in both legs a few days ago, he no longer has pain. He does get intermittent urinary retention but no new urinary symptoms. He does not remember falling. I asked the son if he thought the patient was confused. He thinks he is not sure why, he is acting the way he is right now. The patient does state he has somewhat of a frontal headache. No neck pain or stiffness. No rash. No recent sick contacts. The son states he had a similar instance last fall where he was at [place] and then he had a full workup and he had no cause of his infection but he got better with antibiotics. Otherwise, remainder of review of systems is negative. PAST MEDICAL HISTORY: 1. History of NSTEMI, status post PCI. 2. Coronary artery disease. 3. Diet controlled diabetes. 4. Hyperlipidemia. 5. Peripheral vascular disease. MEDICATIONS: 1. Simvastatin 80 mg p.o. daily. 2. Metoprolol tartrate 25 mg p.o. daily. 3. Plavix 75 mg daily. 4. Aspirin 81 mg daily. ALLERGIES: No known drug allergies. FAMILY HISTORY: Reviewed and noncontributory. SOCIAL HISTORY: The patient lives at home with his roommate, Musa. He is independent of his ADLs. He still drives and plays piano. 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 His son Damion is his healthcare proxy. Rare alcohol use. He quit smoking at age 61. He has approximately 187-aswd-neyl smoke history. Code status is full code; confirmed with the patient and the son. REVIEW OF SYSTEMS: A 14-point review of systems was mentioned in the HPI, otherwise negative. PHYSICAL EXAMINATION GENERAL: In no acute distress. Resting comfortably with his son at the bedside. VITAL SIGNS: Temp, T-max 101.5, pulse rate 80, respiratory rate 19, oxygen saturation 94% on 2 L, blood pressure 156/71. HEENT: Head: Normocephalic. Pupils are equal and reactive. Anicteric. Oropharynx: Mucous membranes are moist. He does have white patches in his oropharynx. NECK: Supple. No lymphadenopathy. No nuchal rigidity. RESPIRATORY: Clear to auscultation. No wheezes, rhonchi or rales. CARDIAC: Regular rate and rhythm. Soft systolic murmur heard throughout. ABDOMEN: Soft, nontender, nondistended. EXTREMITIES: No clubbing, cyanosis, or edema. +2 DPs. NEUROLOGIC: He is alert and oriented x3. No gross focal neurologic deficits. Does have some intermittent confusion with not being able to answer questions appropriately. DERM: No lesions or rashes. LABORATORY DATA: White count 9.1, hemoglobin 13.2, hematocrit 40, platelets 178,000. INR is 1.08. Sodium 132, potassium 3.9, chloride 98, bicarb 23. BUN 23, creatinine 1.23. Glucose 135. Total bili 1.7. Troponin 0.03. Lactic acid 1.3. CRP is 1.19. UA shows 2+ blood, +1 bacteria. RADIOLOGIC DATA: Chest x-ray unremarkable. ASSESSMENT AND PLAN: This is an 88-year-old male with a past medical history of hyperlipidemia, coronary artery disease, presented to the emergency room after having fall, weakness, and found to be febrile. 1. Fever with weakness and fall. Assessment: Suspect the weakness and the fall secondary to infectious etiology with the fever. There is no focal infection other than possibly urinary tract infection with 1+ bacteria, but negative leukocytes. No respiratory or cardiac symptoms. Chest x-ray is unremarkable. Plan: We will follow up on his blood cultures, admit him overnight for observation. Could be viral syndrome. We will repeat his labs in the morning. Continue him on ceftriaxone. Follow up on his urine culture. Place him on gentle fluids as well as we will follow up his flu swab. 2. Oral thrush. The patient with findings of oral thrush. We will start him on nystatin. 3. Chronic medical problems. We will resume his home medications as prescribed. 4. FEN: Continue him on a regular diet. 5. DVT prophylaxis: The patient scores high risk. Place him on heparin subcu t.i.d. 6. Code status: Full code. TIME SPENT: Greater than 40 minutes were spent doing the history and physical, more than half the time spent in direct patient contact. [id number]/[facility] #: [id number] RACIEL
[2018-12-28] MEDS: Nystatin SUSPENSION* 100000 UNITS/ML 5 ML UDC PO SCH ×5 (01:25→20:35)
[2018-12-28] MEDS: Heparin VIAL(*) 5000 UNITS/ML VIAL (FIVE THOUSAND) SUBCUT SCH ×3 (05:44→21:23)
[2018-12-28 06:52] LABS: Calcium 9.7 mg/dL (8.6-10.3)
[2018-12-28 06:58] LABS: EGFR African American 80.5 (>60); EGFR Non-African American 66.5 (>60)
[2018-12-28 08:15] LABS: ABS Lymphocytes 0.9 10^3/ul (1.0-4.8); ABS Monocytes 0.7 10^3/ul (0-0.8); ABS Neutrophils 4.9 10^3/ul (1.5-7.7); Eosinophil % 0.1 %; Hematocrit 40 % (42-52); Lymphocyte % 13.1 %; Mean Corpuscular HGB Conc 33 g/dL (31-36); Mean Corpuscular Hemoglobin 28 pg (27-31); Mean Corpuscular Volume 86 fL (80-94); Mean Platelet Volume 8.5 fL (7.4-10.4); Nucleated Red Blood Cells % 0.1; Platelet Count 157 10^3/uL (150-450); Red Blood Count 4.65 10^6 /uL (4.18-5.48); Red Cell Distribution Width 16 % (10.5-15); White Blood Count 6.5 10^3/uL (3.5-10.8)
[2018-12-28] MEDS: Clopidogrel TAB* 75 MG PO SCH (08:57)
[2018-12-28] MEDS: Atorvastatin* 40 MG TAB PO SCH (08:57)
[2018-12-28] MEDS: cefTRIAXone(*) 1 GM in NS 0.9% 50 ML* 50 ML IVPB SCH (08:58)
[2018-12-28] MEDS: Aspirin 81 mg CHEW TAB* 81 MG TAB.CHEW PO SCH (08:58)
[2018-12-28] MEDS ORDERED: Metoprolol Tartrate TAB* 25 MG PO SCH (09:00)
--- NOTE | 2018-12-28 13:45 | PN ---
Subjective Date of Service: 12/28/18 Interval History: Doing well. seen with son in the room this afternoon. patient was able to provide an adequate history stating that he has been having increase weakness and uncomfortable feeling coming down from his mid abdomen, back to thighs and knees. He has been falling frequently but and was seen at [facility] for similar reason and was discharged home. today he looks better to his son and the patient himself feels better. What troubles me is that the patient does not recall falling. And the feeling that he describe of warm and uncomfortable feeling spreading down his leg could it be pre-aura? did he syncopize?. Past Medical History: Unchanged from Admission Objective Active Medications: Acetaminophen (Tylenol Tab*) 650 mg PO Q4H PRN PRN Reason: FEVER/PAIN Al Hydrox/Mg Hydrox/Simethicone (Maalox Plus*) 30 ml PO Q6H PRN PRN Reason: INDIGESTION Aspirin (Aspirin 81 Mg Chew Tab*) 81 mg PO DAILY [facility] Last Admin: 12/28/18 08:58 Dose: 81 mg Atorvastatin Calcium (Lipitor*) 40 mg PO DAILY [facility] Last Admin: 12/28/18 08:57 Dose: 40 mg Clopidogrel Bisulfate (Plavix Tab*) 75 mg PO DAILY [facility] Last Admin: 12/28/18 08:57 Dose: 75 mg Docusate Sodium (Colace Cap*) 100 mg PO BID PRN PRN Reason: CONSTIPATION Heparin Sodium (Porcine) (Heparin Vial(*)) 5,000 units SUBCUT Q8HR [facility] Last Admin: 12/28/18 05:44 Dose: 5,000 units Lactated Ringer's (Lactated Ringers 1000 Ml Bag*) 1,000 mls @ 75 mls/hr IV PER RATE [facility] Last Admin: 12/28/18 00:50 Dose: 75 mls/hr Ceftriaxone Sodium 1 gm/ (Sodium Chloride) 50 mls @ 200 mls/hr IVPB Q24H [facility] Last Admin: 12/28/18 08:58 Dose: 200 mls/hr Metoprolol Tartrate (Lopressor Tab*) 25 mg PO DAILY [facility] Last Admin: 12/28/18 08:57 Dose: 25 mg Nystatin (Nystatin Suspension*) 500,000 units PO QID [facility] Stop: 01/03/19 23:13 Last Admin: 12/28/18 08:57 Dose: 500,000 units Ondansetron HCl (Zofran Inj*) 4 mg IV Q4H PRN PRN Reason: NAUSEA/VOMITING Senna (Senokot Tab*) 1 tab PO BID PRN PRN Reason: CONSTIPATION Vital Signs - 8 hr 12/28/18 12/28/18 08:51 11:15 Temperature 99.0 F 98.6 F Pulse Rate 80 60 Respiratory 20 18 Rate Blood Pressure 140/61 125/53 (mmHg) O2 Sat by Pulse 97 95 Oximetry Oxygen Devices in Use Now: Nasal Cannula Appearance: Awake, alert. no distress Eyes: No Scleral Icterus, PERRLA Ears/Nose/Mouth/Throat: NL Teeth, Lips, Gums, Mucous Membranes Moist Neck: NL Appearance and Movements; NL JVP, Trachea Midline Respiratory: Symmetrical Chest Expansion and Respiratory Effort, Clear to Auscultation Cardiovascular: NL Sounds; No Murmurs; No JVD, RRR Abdominal: NL Sounds; No Tenderness; No Distention Extremities: No Edema Neurological: Alert and Oriented x 3 Result Diagrams: 12/28/18 07:40 12/28/18 06:36 Assess/Plan/Problems-Billing Assessment: 88 y/o male admitted for weakness, falls and fever. ? UTI - Patient Problems (1) Fever Current Visit: Yes Status: Acute Code(s): R50.9 - FEVER, UNSPECIFIED SNOMED Code(s): 735586217 Comment: - Follow up BC and UC - We are treating empirically for possible UTI - On ceftriaxone day # 2 (2) UTI (urinary tract infection) Current Visit: Yes Status: Acute Comment: - Follow up BC and UC - We are treating empirically for possible UTI - On ceftriaxone day # 2 (3) Fall Current Visit: Yes Status: Acute Comment: - Etiology possible mechanical and low back pain... - However, none of the fall witnessed. I will place him on tele, and monitor for seizure, hypoglycemia? (4) Back pain Current Visit: No Status: Acute Code(s): M54.9 - DORSALGIA, UNSPECIFIED SNOMED Code(s): 763806288 Comment: - Requested records from [facility] Back xrays (5) CAD in [place] artery Current Visit: No Status: Chronic Code(s): I25.10 - ATHSCL HEART DISEASE OF [place] CORONARY ARTERY W/O ANG PCTRS SNOMED Code(s): 5458391449046 Comment: - continue aspirin 81 mg daily, lipitor 40 mg HS, plavix 75 mg daily , Lopressor 25 mg daily (6) Diabetes mellitus Current Visit: No Status: Chronic Code(s): E11.9 - TYPE 2 DIABETES MELLITUS WITHOUT COMPLICATIONS SNOMED Code(s): 32950129 Comment: - Hx of diabetes. Will place him on sliding scale with coverage to ensure he is not have hypoglycemia. espescially with his repeated fall and weakness (7) PVD (peripheral vascular disease) Current Visit: No Status: Chronic Code(s): I73.9 - PERIPHERAL VASCULAR DISEASE, UNSPECIFIED SNOMED Code(s): 761997349 Comment: - continue aspirin 81 mg daily, lipitor 40 mg HS, plavix 75 mg daily (8) DVT prophylaxis Current Visit: Yes Status: Acute Code(s): Z29.9 - ENCOUNTER FOR PROPHYLACTIC MEASURES, UNSPECIFIED SNOMED Code(s): 068030278 Comment: - Hep 5000 Q8hrs
[2018-12-28] MEDS ORDERED: Dextrose 50% Syringe 50 ML* 25 GM/50 ML SYRINGE IV PUSH PRN (13:52)
[2018-12-28] MEDS: Insulin LISPRO* 1 UNITS UNIT SUBCUT SCH ×2 (16:56→20:33)
[2018-12-28 17:58] LABS: Magnesium 1.8 mg/dL (1.9-2.7)
[2018-12-29] MEDS: Lactated Ringers 1000 ML Bag* 1,000 ML IV SCH (04:07)
[2018-12-29] MEDS: Heparin VIAL(*) 5000 UNITS/ML VIAL (FIVE THOUSAND) SUBCUT SCH ×3 (05:48→21:25)
[2018-12-29] MEDS: Insulin LISPRO* 1 UNITS UNIT SUBCUT SCH ×4 (07:40→20:35)
[2018-12-29] MEDS: cefTRIAXone(*) 1 GM in NS 0.9% 50 ML* 50 ML IVPB SCH (07:41)
[2018-12-29] MEDS: Nystatin SUSPENSION* 100000 UNITS/ML 5 ML UDC PO SCH ×4 (07:42→20:39)
[2018-12-29] MEDS: Clopidogrel TAB* 75 MG PO SCH (07:43)
[2018-12-29] MEDS: Atorvastatin* 40 MG TAB PO SCH (07:43)
[2018-12-29] MEDS: Aspirin 81 mg CHEW TAB* 81 MG TAB.CHEW PO SCH (07:43)
[2018-12-29 09:06] LABS: BUN/Creatinine Ratio 17.3 (8-20); Calcium 9.2 mg/dL (8.6-10.3); EGFR African American 81.4 (>60); EGFR Non-African American 67.2 (>60); Magnesium 1.7 mg/dL (1.9-2.7); Phosphorus 2.2 mg/dL (2.5-5.0); Potassium 3.7 mmol/L (3.5-5.0)
[2018-12-29 09:21] LABS: TSH (Thyroid Stimulating Horm) 1.4 mcIU/mL (0.34-5.60)
[2018-12-29 09:23] LABS: Free T4 0.96 ng/dL (0.61-1.12)
[2018-12-29] MEDS: Magnesium Oxide TAB* 400 MG PO SCH ×2 (11:17→20:37)
[2018-12-29] MEDS ORDERED: Magnesium Sulfate 2 GM IV* 2 GM/50 ML BAG IVPB ONE (12:07)
[2018-12-29] MEDS: Potassium & Sodium Phos 250MG* = 1 PACKET PO SCH ×2 (12:40→20:38)
--- NOTE | 2018-12-29 14:11 | PN ---
Subjective Date of Service: 12/29/18 Interval History: Patient seen this morning. denies any chest pain or dizziness. Seen by PT and deemed unsafe to return home independently. He may need rehab and PT. Tele overnight sinus with atrial bijeminy. occasional bradycardia. Past Medical History: Unchanged from Admission Objective Active Medications: Acetaminophen (Tylenol Tab*) 650 mg PO Q4H PRN PRN Reason: FEVER/PAIN Al Hydrox/Mg Hydrox/Simethicone (Maalox Plus*) 30 ml PO Q6H PRN PRN Reason: INDIGESTION Aspirin (Aspirin 81 Mg Chew Tab*) 81 mg PO DAILY [facility] Last Admin: 12/29/18 07:43 Dose: 81 mg Atorvastatin Calcium (Lipitor*) 40 mg PO DAILY [facility] Last Admin: 12/29/18 07:43 Dose: 40 mg Clopidogrel Bisulfate (Plavix Tab*) 75 mg PO DAILY [facility] Last Admin: 12/29/18 07:43 Dose: 75 mg Dextrose (D50w Syringe 50 Ml*) 12.5 gm IV PUSH .FOR FS < 60 - SS PRN PRN Reason: FS < 60 Docusate Sodium (Colace Cap*) 100 mg PO BID PRN PRN Reason: CONSTIPATION Heparin Sodium (Porcine) (Heparin Vial(*)) 5,000 units SUBCUT Q8HR [facility] Last Admin: 12/29/18 12:40 Dose: 5,000 units Lactated Ringer's (Lactated Ringers 1000 Ml Bag*) 1,000 mls @ 75 mls/hr IV PER RATE [facility] Last Admin: 12/29/18 04:07 Dose: 75 mls/hr Ceftriaxone Sodium 1 gm/ (Sodium Chloride) 50 mls @ 200 mls/hr IVPB Q24H [facility] Last Admin: 12/29/18 07:41 Dose: 200 mls/hr Insulin Human Lispro (Humalog*) 0 units SUBCUT ACHS [facility]; Protocol Last Admin: 12/29/18 12:21 Dose: Not Given Magnesium Oxide (Magox 400 Tab*) 400 mg PO BID [facility] Last Admin: 12/29/18 11:17 Dose: 400 mg Nystatin (Nystatin Suspension*) 500,000 units PO QID [facility] Stop: 01/03/19 23:13 Last Admin: 12/29/18 12:39 Dose: 500,000 units Ondansetron HCl (Zofran Inj*) 4 mg IV Q4H PRN PRN Reason: NAUSEA/VOMITING Potassium Phos/Sodium Phos (Neutra Phos 250 Mg Xavier*) 250 mg PO TID MELVI Last Admin: 12/29/18 12:40 Dose: 250 mg Senna (Senokot Tab*) 1 tab PO BID PRN PRN Reason: CONSTIPATION Vital Signs - 8 hr 12/29/18 12/29/18 07:19 08:00 Temperature 97.9 F Pulse Rate 68 Respiratory 16 18 Rate Blood Pressure 137/63 (mmHg) O2 Sat by Pulse 94 99 Oximetry Oxygen Devices in Use Now: Nasal Cannula Appearance: awake, hard of hearing. no apparent distress Eyes: No Scleral Icterus, - Ears/Nose/Mouth/Throat: NL Teeth, Lips, Gums, Mucous Membranes Moist Neck: NL Appearance and Movements; NL JVP, Trachea Midline Respiratory: Symmetrical Chest Expansion and Respiratory Effort, Clear to Auscultation Cardiovascular: NL Sounds; No Murmurs; No JVD, No Edema Abdominal: NL Sounds; No Tenderness; No Distention Skin: No Rash or Ulcers Neurological: Alert and Oriented x 3, - - require one assist Result Diagrams: 12/28/18 07:40 12/29/18 08:05 Microbiology and Other Data: Microbiology 12/27/18 20:10 Aerobic Blood Culture - Preliminary Blood Venous No Growth Day 1 Anaerobic Blood Culture - Preliminary No Growth Day 1 12/27/18 19:57 Aerobic Blood Culture - Preliminary Blood Venous No Growth Day 1 Anaerobic Blood Culture - Preliminary No Growth Day 1 12/27/18 20:35 Urine Culture - Final Urine No Growth (<1,000 CFU/mL) Assess/Plan/Problems-Billing Assessment: 88 y/o male admitted for weakness, falls and fever. admitted for presumed UTI ( ruled out), now consider possible syncope v.s musculoskeletal - Patient Problems (1) Fever Current Visit: Yes Status: Acute Code(s): R50.9 - FEVER, UNSPECIFIED SNOMED Code(s): 470117790 Comment: - BC and UC so far negative, and his CXR atelectasisi no infiltrate. - Fever improved on empirically ceftriaxone day # 3 - I will discontinue given negative culture work up. Could have been viral? (2) Fall Current Visit: Yes Status: Acute Comment: - Etiology unlcear if mechanical, musculoskeletal or cardiac syncope? - Today and yesterday I have an extended time with the patient and his son at bedside attempting to gather more direct informations regarding the event surrounding his "fall"... "weakness"... and the "back and leg pain/weakness". Although the patient is very pleasant, Unfortunately, he is a very poor historian and is unable to recall most of the events. - He did verbalize (with the help of his son at bedside) that about a week ago he developed pain/"sensations" from his back down to his knee, and it was painful. Finally he went to [facility] Emergency room and he was discharged with the diagnosis of "Sciatica pain". Then, 2 days ago (the day of this admission) he was found on the floor by his roommate, awake but confused, and a plant was found knocked down on the floor. The patient can not recall if he lost consciousness or not, and he does not recall the event. His roommate called 911 and was brought to the ER. - Yesterday (12/28/18) and given the history obtained above, I decided to put him on tele (although the admission diagnosis was UTI). His tele did reveal bradycardia in the 40's and frequent atrial bijemimy. His Lopressor was held yesterday after he had already received it yesterday. It remains on hold for today. I did ask his senior regulatory affairs specialist Dr. Howard to weigh in given the circumstance above and if cardiac syncope could be playing a role here. Official consult pending - Also I requested Finger Stick AQC and HS to rule out hypoglycemia. - I requested Xray from [facility], have not able to review, I did order repeat Lumbar sacral pending result we may need to explore further imaging options (3) Back pain Current Visit: No Status: Acute Code(s): M54.9 - DORSALGIA, UNSPECIFIED SNOMED Code(s): 563814560 Comment: - I requested Xray from [facility], have not able to review, I did order repeat Lumbar sacral pending result we may need to explore further imaging options (4) CAD in [place] artery Current Visit: No Status: Chronic Code(s): I25.10 - ATHSCL HEART DISEASE OF [place] CORONARY ARTERY W/O ANG PCTRS SNOMED Code(s): 6544068685144 Comment: - Continue aspirin 81 mg daily, lipitor 40 mg HS, plavix 75 mg daily , Lopressor 25 mg daily (held as of 12/28/18) - Yesterday (12/28/18) and given the history obtained above, I decided to put him on tele (although the admission diagnosis was UTI). His tele did reveal bradycardia in the 40's and frequent atrial bijemimy. His Lopressor was held yesterday after he had already received it. It remains on hold for today. I did ask his senior regulatory affairs specialist Dr. Howard to weigh in given the circumstance above and if cardiac syncope could be playing a role here. Official consult pending - I am going to request repeat Echo to reassess his LV functions (5) Diabetes mellitus Current Visit: No Status: Chronic Code(s): E11.9 - TYPE 2 DIABETES MELLITUS WITHOUT COMPLICATIONS SNOMED Code(s): 32549294 Comment: - Hx of diabetes. placed him on sliding scale with coverage to ensure he is not have hypoglycemia. Espescially with his repeated fall and weakness (6) PVD (peripheral vascular disease) Current Visit: No Status: Chronic Code(s): I73.9 - PERIPHERAL VASCULAR DISEASE, UNSPECIFIED SNOMED Code(s): 184221691 Comment: - Continue aspirin 81 mg daily, lipitor 40 mg HS, plavix 75 mg daily - Given his leg weakness, and pain I am going to request arterial doppler. - PT did see the patient and recommended continue PT and may benefit from Rehab. Will defer to case sealer (7) DVT prophylaxis Current Visit: Yes Status: Acute Code(s): Z29.9 - ENCOUNTER FOR PROPHYLACTIC MEASURES, UNSPECIFIED SNOMED Code(s): 353238124 Comment: - Hep 5000 Q8hrs (8) UTI (urinary tract infection) Current Visit: Yes Status: Ruled-out Comment: - ruled out, negative culture. Will d/c Abx
--- NOTE | 2018-12-29 15:21 | PN ---
Cardiology Progress Note Date of Service: 12/29/18 - CC: fall Full note to be dictated. Found on the floor, events unknown. Recent LE pain, started on NSAIDs (apparently no narcotics started). Seen with the son. Fever 101 Sinus nena on metoprolol 25 Pt tachypnic talking. Very vague, not as alert as usual. L carotid bruit. Clear lungs S1S2, reg. Unable to ambulate independently. No edema. Low Mag/KCl Large differential of mechanical fall (lumbar disc disease on Manny films), tachy or nena arrhythmias, low BP, infection. Aging in general. Needs discharge planning which I believe is in progress. Update echo, last one showed EF 50%, in past lower, has an inferior wall scar, at risk for VT May need an implanted EM to look for tachy/nena events. Consider carotid Doppler for what appears to be dementia + bruit on exam. If more low grade fevers work up, ESR, CRP, CBC, cultures... son reports similar mentation in the past responded to abx, at his age he could have an infection with only low grade symptoms.
[2018-12-29] MEDS: Metoprolol Tartrate TAB* 25 MG PO SCH (17:43)
[2018-12-30] MEDS: Heparin VIAL(*) 5000 UNITS/ML VIAL (FIVE THOUSAND) SUBCUT SCH ×3 (06:08→20:28)
[2018-12-30] MEDS: Insulin LISPRO* 1 UNITS UNIT SUBCUT SCH ×4 (07:39→20:27)
[2018-12-30] MEDS: Potassium & Sodium Phos 250MG* = 1 PACKET PO SCH ×3 (08:56→20:20)
[2018-12-30] MEDS: Atorvastatin* 40 MG TAB PO SCH (08:56)
[2018-12-30] MEDS: Aspirin 81 mg CHEW TAB* 81 MG TAB.CHEW PO SCH (08:56)
[2018-12-30] MEDS: Metoprolol Tartrate TAB* 25 MG PO SCH (08:56)
[2018-12-30] MEDS: Magnesium Oxide TAB* 400 MG PO SCH ×2 (08:56→20:19)
[2018-12-30] MEDS: Nystatin SUSPENSION* 100000 UNITS/ML 5 ML UDC PO SCH ×4 (08:57→20:22)
[2018-12-30] MEDS: Clopidogrel TAB* 75 MG PO SCH (08:57)
[2018-12-30 09:17] LABS: BUN/Creatinine Ratio 16.7 (8-20); Calcium 9.3 mg/dL (8.6-10.3); EGFR African American 89.2 (>60); EGFR Non-African American 73.8 (>60); Potassium 3.8 mmol/L (3.5-5.0)
--- NOTE | 2018-12-30 10:00 | CONS ---
CC: Dr. Ernestine Biggs CARDIOLOGY CONSULTATION: DATE OF CONSULT: 12/29/18 HOSPITALIST: Dr. Ernestine Biggs. REASON FOR CONSULTATION: Fall. CHIEF COMPLAINT: History of fall and confusion. HISTORY OF PRESENT ILLNESS: Mr. Bradley is an 88-year-old patient whom I followed for several years with a history of coronary artery disease as well as peripheral vascular disease. The patient was seen and examined today in presence of his son. Mr. Bradley had presented with lower extremity pain to [facility] earlier in the month and according to son, had been treated with Advil with improvement. Then , yesterday on 12/28/18, the patient was found on the floor by the gentleman he rent the room to and this was apparently the second time he had fallen. It was unsure how long he has had been on the floor. EMS was called. His oxygen saturations were found to be 88% and he was febrile. At [facility] Emergency [facility], he was treated with empiric antibiotics and on admission seemed confused. In reviewing those notes, the patient was vague, but he had some nausea and some constipation and a frontal headache. The hospitalist noted bradycardia on telemetry, stopped the patient's beta yamileth due to concern of symptomatic bradycardia. The day I saw him, he has continued to be somewhat confused and quite vague and unable to answer quite a few questions. The patient denied shortness of breath, chest pain, pressure, heaviness, palpitations. He denied hematuria, dysuria or coughing. PAST MEDICAL HISTORY: The patient has a past medical history of: 1. Coronary artery disease, cardiac catheterization March 2013 with stenting to an 80% LAD lesion. He underwent stenting to proximal 95% occlusion of the right coronary artery. The posterior descending artery was thin, thread like, and totally occluded following the first PL branch. Left main 10%, circumflex was nondominant and collateral flow was noted to filled of first PL branch from the distal circumflex. 2. Peripheral vascular disease, carotids and legs, abdominal and femoral bruits. 3. Dyslipidemia. 4. Hypertension. 5. Ischemic cardiomyopathy with inferior wall scar, ejection fraction 55% in 2019. 6. Mitral insufficiency, varies mild to moderate. 7. Pneumonia September 2018. 8. Lumbar disk disease ([place] study December 2018 showed compression of the lumbar spine). OUTPATIENT MEDICATIONS: Included: 1. Atorvastatin 80 mg a day. 2. Metoprolol ER 25 mg a day. 3. Plavix 75 mg a day. 4. Aspirin 81 mg a day. 5. Probiotic. CURRENT INPATIENT MEDICATIONS: Include: 1. Tylenol. 2. Maalox. 3. Aspirin 81 mg a day. 4. Lipitor 40 mg a day. 5. Plavix 75 mg a day. 6. Colace 100 mg b.i.d. 7. Subcutaneous heparin. 8. Lispro insulin p.r.n. 9. Magnesium oxide 400 mg b.i.d. 10. Lopressor 12.5 mg a day. 11. Nystatin. 12. Zofran p.r.n. 13. Neutra phos 250 mg p.o. t.i.d. 14. Senna. ALLERGIES: He has no known drug allergies. FAMILY HISTORY: Negative for coronary artery disease and his mother lived to [employer]. SOCIAL HISTORY: The patient is . 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 Rare alcohol. 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 REVIEW OF SYSTEMS: The patient at the time I saw him was vague. He really could not recollect anything of the day of the event. His son concurs that his father is more confused and it is similar to the episode in September where he appeared infected and although no source was found, he responded to antibiotics. The son does not live with him, but he is actively in touch with him. His father sleeps in a recliner chair out of convenience. There is no obvious history of orthopnea. It sounds like there are some balance issues and it is difficult to go upstairs. I was unable to elicit any history of chest pain, palpations, or dizziness. No trouble urinating. No coughing. No earaches or headaches today. All other 14- point review of systems was negative. PHYSICAL EXAMINATION: The patient is 5 feet 10 inches, weighs 189 pounds with a BMI of 27. Vital signs on arrival to the emergency room, oxygen saturation 88 % on room air, temperature 101.5, pulse was 102, and blood pressure 165/84 on . At the time I saw him, the patient's blood pressure was 98/82, oxygen saturation 96% on room air, pulses 57, temperature in the morning 99. General Appearance: Elderly gentleman had been using a walker to and from the bathroom, appeared frail and unsteady. Psychologically pleasant and cooperative, appeared to know me, but vague with his answers. Skin: Warm, dry, no appreciable cyanosis or rashes. HEENT: Pupils are equal and round. Mucous membranes moist. Neck: Without increased JVP. Palpable carotid pulses with soft left bruit. Breath sounds were clear with good effort. No wheezes, rales , or rhonchi. Coronary: S1, S2. Regular without murmurs appreciated. Abdomen : Active bowel sounds. Soft, nontender from exam done seated. Lower extremities were free of edema and distal pulses were hard to find. DIAGNOSTIC STUDIES/LAB DATA: Labs: White count 6.5, hematocrit 40, platelets 157. INR 1.08, PTT 27. Sodium 132, potassium 3.7, chloride 103, bicarb 24, BUN 18, creatinine 1.04, glucose 114, magnesium 1.7. AST 21, ALT 13, troponin 0.03. TSH 1.4. Urinalysis, trace ketones, 2+ blood, protein negative. Leukocyte esterase negative. White count trace. Bacteria 1+. Serology was negative for influenza A and B. Chest x-ray, mild density in the lung bases consistent with hypoventilation, atelectasis. Echocardiogram from 09/07/18, showed an ejection fraction of 55 to 60% with mild inferior wall hypokinesis, abnormal diastolic filling, mild right ventricular hypokinesis, [id number] mitral insufficiency, trace tricuspid insufficiency. Stress test from 10/02/18, started with an exercise test, he was only able to walk for 49 seconds on the modified Antony protocol, 1.2 METS. He did achieve his target heart rate. He had resting hypertension of 164/96, which increased to 190/84. This is a maximal stress test. I noted that his gait limited his exercise. The nuclear portion of the study showed a moderate-sized inferior infarction with rhonda- infarct ischemia and moderately depressed ejection fraction 40% at rest, 35% post exercise. 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 Lipids from 10/02/18 showed total cholesterol 108, both HDL and LDL cholesterol 43, triglycerides 107. IMPRESSION AND PLAN: In summary, Romulo Bradley is an 88-year-old gentleman admitted for a fall of uncertain etiology and he has confusion. He had some transient hypoxia, low-grade fevers. The hospitalists are concerned about bradycardia, as his sinus rates got down to 40s. Off beta-yamileth, he had sinus tachycardia to 108 with atrial bigeminy. Regarding the fall, the etiology of the large differential could be related to balance issues, based on my exercise treadmill test, he has poor balance and in very poor functional ability. It is possible that he had tachy or nena arrhythmias. He will be risk for nena arrhythmias from age and beta-yamileth and tachyarrhythmias from his old inferior wall scar. I do not have enough data to implant a pacemaker or a defibrillator or determine the exact etiology of the fall. The patient's confusion and decline in functional status are concerning and it does not appear that he would be able to go home and live independently at this point. His son is understanding of this and the patient did understand that and expressed to himself that he did not think he would be able to go home right now and to care for himself. For the patient's falls, we could implant an event monitor to look for tachy and bradyarrhythmias. I would recommend continuing the half dose Lopressor and continue him on telemetry for now. I would recommend that physical therapy evaluation, continuation of using the walker at least doing in his room. Infectious etiology is not totally ruled out and if he spikes again or empirically we may want to check his sed rate or C-reactive protein. It is possible he has significant peripheral vascular disease of the lower extremities and that could be the etiology of his lower extremity pain. Although the patient has evidence of compression of the spine, he also has abdominal and femoral bruits and he may want to consider getting serial PVRs to look for the possibility of the claudication impacting on his ability to walk and balance. For the patient's confusion, this could be related to infection, hypoxia, but he does have carotid stenosis as well and I would consider updating a carotid study. I will leave it to the hospitalist whether or not to get a CT scan and I do not have access to his old [facility] records. From a cardiac standpoint, I do not feel he needs an update stress test. His ejection fractions have varied from echo to nuclear studies, but I think we should assume he has a [id number] cardiomyopathy and his inferior wall scar puts him at risk for ventricular dysrhythmias. I do not have any evidence of sustained atrial dysrhythmias such as fib or flutter. Again, I think an event monitor implantation at this point is the next best cardiac step and updating his vascular studies and looking for infectious source. Thank you for allowing me to assist in this very nice gentleman's care. [id number]/[facility] #: [id number] RACIEL
--- NOTE | 2018-12-30 10:40 | PN ---
Subjective Date of Service: 12/30/18 Interval History: Very pleasant on assessment. He is alert, oriented, and engaging well in ros and assessment. Denies leg pain, cp, palpitations, dizziness, nausea, vomiting, sob. He reports he feels like he has to void frequently. Denies burning or pain. Also reports he is constipated and his last BM was approx 3 days ago. Past Medical History: Unchanged from Admission Objective Active Medications: Acetaminophen (Tylenol Tab*) 650 mg PO Q4H PRN PRN Reason: FEVER/PAIN Al Hydrox/Mg Hydrox/Simethicone (Maalox Plus*) 30 ml PO Q6H PRN PRN Reason: INDIGESTION Aspirin (Aspirin 81 Mg Chew Tab*) 81 mg PO DAILY [facility] Last Admin: 12/30/18 08:56 Dose: 81 mg Atorvastatin Calcium (Lipitor*) 40 mg PO DAILY [facility] Last Admin: 12/30/18 08:56 Dose: 40 mg Clopidogrel Bisulfate (Plavix Tab*) 75 mg PO DAILY [facility] Last Admin: 12/30/18 08:57 Dose: 75 mg Dextrose (D50w Syringe 50 Ml*) 12.5 gm IV PUSH .FOR FS < 60 - SS PRN PRN Reason: FS < 60 Docusate Sodium (Colace Cap*) 100 mg PO BID PRN PRN Reason: CONSTIPATION Last Admin: 12/30/18 08:56 Dose: 100 mg Heparin Sodium (Porcine) (Heparin Vial(*)) 5,000 units SUBCUT Q8HR [facility] Last Admin: 12/30/18 06:08 Dose: 5,000 units Insulin Human Lispro (Humalog*) 0 units SUBCUT [facility]; Protocol Last Admin: 12/30/18 07:39 Dose: Not Given Magnesium Oxide (Magox 400 Tab*) 400 mg PO BID [facility] Last Admin: 12/30/18 08:56 Dose: 400 mg Metoprolol Tartrate (Lopressor Tab*) 12.5 mg PO DAILY [facility] Last Admin: 12/30/18 08:56 Dose: 12.5 mg Nystatin (Nystatin Suspension*) 500,000 units PO QID [facility] Stop: 01/03/19 23:13 Last Admin: 12/30/18 08:57 Dose: 500,000 units Ondansetron HCl (Zofran Inj*) 4 mg IV Q4H PRN PRN Reason: NAUSEA/VOMITING Potassium Phos/Sodium Phos (Neutra Phos 250 Mg Xavier*) 250 mg PO TID [facility] Last Admin: 12/30/18 08:56 Dose: 250 mg Senna (Senokot Tab*) 1 tab PO BID PRN PRN Reason: CONSTIPATION Last Admin: 12/30/18 08:56 Dose: 1 tab Vital Signs - 8 hr 12/30/18 12/30/18 12/30/18 03:01 03:11 07:40 Temperature 97.9 F 97.4 F Pulse Rate 70 55 57 Respiratory 18 14 Rate Blood Pressure 147/57 145/49 (mmHg) O2 Sat by Pulse 93 96 Oximetry 12/30/18 08:00 Temperature Pulse Rate Respiratory 14 Rate Blood Pressure (mmHg) O2 Sat by Pulse 96 Oximetry Oxygen Devices in Use Now: None Appearance: Comfortable, NAD Eyes: No Scleral Icterus Ears/Nose/Mouth/Throat: Clear Oropharnyx, Mucous Membranes Moist Neck: NL Appearance and Movements; NL JVP Respiratory: Symmetrical Chest Expansion and Respiratory Effort, Clear to Auscultation Cardiovascular: NL Sounds; No Murmurs; No JVD, RRR, No Edema Abdominal: NL Sounds; No Tenderness; No Distention Lymphatic: No Cervical Adenopathy Extremities: No Edema Skin: No Rash or Ulcers Neurological: Alert and Oriented x 3, NL Muscle Strength and Tone Nutrition: Taking PO's Result Diagrams: 12/28/18 07:40 12/30/18 08:27 Additional Lab and Data: Laboratory Results - last 24 hr 12/29/18 12/29/18 12/29/18 12:12 18:08 20:33 Sodium Potassium Chloride Carbon Dioxide Anion Gap BUN Creatinine Est GFR ( Amer) Est GFR (Non-Af Amer) BUN/Creatinine Ratio Glucose POC Glucose (mg/dL) 111 H 104 H 135 H Calcium Magnesium 12/30/18 12/30/18 07:34 08:27 Sodium 135 Potassium 3.8 Chloride 104 Carbon Dioxide 24 Anion Gap 7 BUN 16 Creatinine 0.96 Est GFR ( Amer) 89.2 Est GFR (Non-Af Amer) 73.8 BUN/Creatinine Ratio 16.7 Glucose 106 H POC Glucose (mg/dL) 119 H Calcium 9.3 Magnesium 2.0 Microbiology and Other Data: Microbiology 12/27/18 20:10 Blood Venous Aerobic Blood Culture - Preliminary No Growth Day 2 12/27/18 20:10 Blood Venous Anaerobic Blood Culture - Preliminary No Growth Day 2 12/27/18 19:57 Blood Venous Aerobic Blood Culture - Preliminary No Growth Day 2 12/27/18 19:57 Blood Venous Anaerobic Blood Culture - Preliminary No Growth Day 2 12/27/18 20:35 Urine Urine Culture - Final No Growth (<1,000 CFU/mL) Assess/Plan/Problems-Billing Assessment: 88 y/o male admitted for weakness, falls and fever. admitted for presumed UTI ( ruled out), now consider possible syncope v.s musculoskeletal - Patient Problems (1) Constipation Comment: - C/O constipation and reports last BM 3 days ago - Changed Senna and Colace from PRN to Scheduled for now. - MOM ordered PRN (2) Fall Comment: - Etiology unlcear if mechanical, musculoskeletal or cardiac syncope? - Unable to recall most of the events leading up to presentation to ED - Reports previous pain from thigh to knees bilaterally. Reports this has resolved. - On tele due to occasional bradycardia and atrial bijemimy. His Lopressor was held previously. Restarted at half dose per Dr Howard recommendations - Cont Finger Stick AQC and HS to rule out hypoglycemia. - Xray from [facility] on 12/26 revealed degenerative changes of lumbar spine and disc space narrowing. - Would benefit from LINQ placement as outpatient - May also benefit from neurology evaluation as outpatient (3) Fever Comment: - BC and UC so far negative, and his CXR atelectasisi no infiltrate. - Fever improved on empirically ceftriaxone day # 3 - Ceftriaxone discontinued yesterday given negative culture work up. Could have been viral? (4) UTI (urinary tract infection) Comment: - Initially ruled out due to negative culture and abx discontinued yesterday - Given c/o urinary symptoms today I will repeat UA and obtained post void bladder scan (5) Back pain Comment: - Xray from [facility] as above - Denies pain at this time (6) CAD in [place] artery Comment: - Continue aspirin 81 mg daily, lipitor 40 mg HS, plavix 75 mg daily, Lopressor at lower dose of 12.5 mg daily - Cardiology consulting - Tele reveals sinus nena in 50s - Repeat echo pending (7) Diabetes mellitus Current Visit: No Status: Chronic Code(s): E11.9 - TYPE 2 DIABETES MELLITUS WITHOUT COMPLICATIONS SNOMED Code(s): 37413981 Comment: - Hx of diabetes. On no medication at home - Cont routine FSBG to ensure he is not have hypoglycemia. - Cont SS - Hemoglobin A1c ordered (8) PVD (peripheral vascular disease) Comment: - Continue aspirin 81 mg daily, lipitor 40 mg HS, plavix 75 mg daily - Given his leg weakness and pain arterial doppler ordered and reveal bilat le arterial atherosclerotic disease without vessel occlusion - PT did see the patient and recommended continue PT and may benefit from Rehab. Will defer to bottle caser (9) DVT prophylaxis Comment: - Hep 5000 Q8hrs Status and Disposition: Inpatient. [facility] when medically stable Attending: Joey Chase
[2018-12-30] MEDS ORDERED: Magnesium Hydroxide LIQ* 30 ML UDC PO PRN (10:44)
[2018-12-30] MEDS: Docusate CAP* 100 MG PO SCH ×2 (10:51→19:24)
[2018-12-30] MEDS: Senna TAB PO SCH ×2 (10:52→19:23)
--- NOTE | 2018-12-30 18:07 | PN ---
Subjective Date of Service: 12/30/18 - CC: fall, confusion Interval History: The patient is feeling stronger and more himself. Medications Active Medications: Acetaminophen (Tylenol Tab*) 650 mg PO Q4H PRN PRN Reason: FEVER/PAIN Al Hydrox/Mg Hydrox/Simethicone (Maalox Plus*) 30 ml PO Q6H PRN PRN Reason: INDIGESTION Aspirin (Aspirin 81 Mg Chew Tab*) 81 mg PO DAILY [facility] Last Admin: 12/30/18 08:56 Dose: 81 mg Atorvastatin Calcium (Lipitor*) 40 mg PO DAILY [facility] Last Admin: 12/30/18 08:56 Dose: 40 mg Clopidogrel Bisulfate (Plavix Tab*) 75 mg PO DAILY [facility] Last Admin: 12/30/18 08:57 Dose: 75 mg Dextrose (D50w Syringe 50 Ml*) 12.5 gm IV PUSH .FOR FS < 60 - SS PRN PRN Reason: FS < 60 Docusate Sodium (Colace Cap*) 100 mg PO BID [facility] Last Admin: 12/30/18 10:51 Dose: Not Given Heparin Sodium (Porcine) (Heparin Vial(*)) 5,000 units SUBCUT Q8HR [facility] Last Admin: 12/30/18 12:09 Dose: 5,000 units Insulin Human Lispro (Humalog*) 0 units SUBCUT [facility]; Protocol Last Admin: 12/30/18 17:39 Dose: Not Given Magnesium Hydroxide (Milk Of Magnpablo Liq*) 30 ml PO BID PRN PRN Reason: CONSTIPATION Magnesium Oxide (Magox 400 Tab*) 400 mg PO BID [facility] Last Admin: 12/30/18 08:56 Dose: 400 mg Metoprolol Tartrate (Lopressor Tab*) 12.5 mg PO DAILY [facility] Last Admin: 12/30/18 08:56 Dose: 12.5 mg Nystatin (Nystatin Suspension*) 500,000 units PO QID [facility] Stop: 01/03/19 23:13 Last Admin: 12/30/18 12:09 Dose: 500,000 units Ondansetron HCl (Zofran Inj*) 4 mg IV Q4H PRN PRN Reason: NAUSEA/VOMITING Potassium Phos/Sodium Phos (Neutra Phos 250 Mg Xavier*) 250 mg PO TID [facility] Last Admin: 12/30/18 12:09 Dose: 250 mg Senna (Senokot Tab*) 1 tab PO BID [facility] Last Admin: 12/30/18 10:52 Dose: Not Given Objective Vital Signs: Temp Pulse Resp BP Pulse Ox 97.5 F 50 20 113/81 98 12/30/18 15:02 12/30/18 15:02 12/30/18 15:02 12/30/18 15:02 12/30/18 15:02 Oxygen Devices in Use Now: None Appearance: Ederly male lying in bed, recognized me immediately, alert Eyes: No Scleral Icterus, PERRLA Ears/Nose/Mouth/Throat: Clear Oropharnyx Neck: Trachea Midline Respiratory: Symmetrical Chest Expansion and Respiratory Effort, Clear to Auscultation Cardiovascular: RRR Abdominal: No Hepatosplenomegaly Extremities: No Edema Skin: No Rash or Ulcers Neurological: - - alert, oriented to person and place, very [place], follows commands. Lines/Tubes/Other Access: Clean, Dry and Intact Peripheral IV Laboratory Results: 12/28/18 07:40 12/30/18 08:27 INR (Anticoag Therapy) 1.08 (0.82-1.09) 12/27/18 19:58 APTT 27.1 seconds (26.0-36.3) 12/27/18 19:58 Total Bilirubin 1.70 mg/dL (0.2-1.0) H 12/27/18 19:58 AST 21 U/L (13-39) 12/27/18 19:58 ALT 13 U/L (7-52) 12/27/18 19:58 Alkaline Phosphatase 118 U/L (34-104) H 12/27/18 19:58 Total Protein 7.5 g/dL (6.4-8.9) 12/27/18 19:58 Albumin 4.3 g/dL (3.2-5.2) 12/27/18 19:58 Globulin 3.2 g/dL (2-4) 12/27/18 19:58 Albumin/Globulin Ratio 1.3 (1-3) 12/27/18 19:58 TSH 1.40 mcIU/mL (0.34-5.60) 12/29/18 08:05 12/27/18 19:58 Troponin I 0.03 Diagnostic Imaging: Location: [address] [place] [address] MEDICAL Exam Date: 12/30/18 ADM Status: ADM IN Order Information: VL LOWER EXT ART DUPLEX BILAT Accession Number: [id number] CPT: 31161 Indication: Peripheral artery disease. Weakness. Technique: Bilateral lower extremity arterial ultrasound. IMPRESSION: #. Bilateral lower extremity arterial atherosclerotic disease without vessel occlusion or visualized hemodynamic significant stenosis. Location: [address] [place] [address] Exam Date: 12/29/18 1522 ADM Status: ADM IN Order Information: VL CAROTID BILATERAL Accession Number: [id number] CPT: 66955 INDICATION: Carotid bruit. Dizziness. IMPRESSION: #. Mild atherosclerotic disease with less than 50% bilateral internal carotid artery stenosis. #. Consider nonemergent follow-up thyroid ultrasound for further characterization of thyroid nodules. No previous thyroid ultrasound available on the [facility] PACS to indicate previous workup. 12/30/18 Echo: EF 55%, small focal area AK base of the inferior wall, trace valvular insufficiency. EKG Data: Monitor: NSR, occ PAC's, PAC's improved c/w yesterday Assessment/Plan 88 yo male with recent falls, some confusion, fevers. Fall: Large differential including tachy and nena arrhythmias, balance, infection , spinal disease. No clear indication this was arrhythmic. Plan: EM implant, inpatient OK if he has to stay for other reasons, otherwise outpatient this week Mon or . CAD/PVD Continue with lipid lowering, risk factor modification. Agree w/addressing hyperglycemia. Balance: Not a new problem, continue with PT as per hospitalists.
[2018-12-31] MEDS: Heparin VIAL(*) 5000 UNITS/ML VIAL (FIVE THOUSAND) SUBCUT SCH ×3 (05:42→21:45)
[2018-12-31 06:32] LABS: ABS Basophils 0.1 10^3/ul (0-0.2); ABS Eosinophils 0.1 10^3/ul (0-0.6); ABS Lymphocytes 1.7 10^3/ul (1.0-4.8); ABS Monocytes 0.4 10^3/ul (0-0.8); ABS Neutrophils 3.6 10^3/ul (1.5-7.7); Eosinophil % 2.4 %; Hematocrit 35 % (42-52); Hemoglobin 11.6 g/dL (14.0-18.0); Lymphocyte % 28.5 %; Mean Corpuscular HGB Conc 33 g/dL (31-36); Mean Corpuscular Hemoglobin 28 pg (27-31); Mean Corpuscular Volume 85 fL (80-94); Mean Platelet Volume 8.5 fL (7.4-10.4); Platelet Count 158 10^3/uL (150-450); Red Blood Count 4.14 10^6 /uL (4.18-5.48); Red Cell Distribution Width 15 % (10.5-15); White Blood Count 5.9 10^3/uL (3.5-10.8)
[2018-12-31 06:35] LABS: Urine Appearance Clear; Urine Bacteria Absent (Absent); Urine Bilirubin Negative (Negative); Urine Blood 1+ (Negative); Urine Color Yellow; Urine Glucose Negative (Negative); Urine Ketones Negative (Negative); Urine Nitrite Negative (Negative); Urine Protein Negative (Negative); Urine Red Blood Cell 1+(3-5/hpf) (Absent); Urine Specific Gravity 1.018 (1.010-1.030); Urine Urobilinogen Negative (Negative); Urine White Blood Cell Absent (Absent)
[2018-12-31 06:49] LABS: BUN/Creatinine Ratio 18.1 (8-20); C Reactive Protein 2.18 mg/L (<8.01); Calcium 9.3 mg/dL (8.6-10.3); EGFR African American 91.4 (>60); EGFR Non-African American 75.6 (>60); Potassium 4.2 mmol/L (3.5-5.0)
[2018-12-31] MEDS: Insulin LISPRO* 1 UNITS UNIT SUBCUT SCH ×4 (07:57→21:46)
[2018-12-31 08:15] LABS: Erythrocyte Sed Rate 13 mm/Hr (0-19)
[2018-12-31] MEDS: Nystatin SUSPENSION* 100000 UNITS/ML 5 ML UDC PO SCH ×4 (09:45→21:26)
[2018-12-31] MEDS: Metoprolol Tartrate TAB* 25 MG PO SCH (09:45)
[2018-12-31] MEDS: Magnesium Oxide TAB* 400 MG PO SCH ×2 (09:45→21:44)
[2018-12-31] MEDS: Aspirin 81 mg CHEW TAB* 81 MG TAB.CHEW PO SCH (09:45)
[2018-12-31] MEDS: Docusate CAP* 100 MG PO SCH ×2 (09:45→21:44)
[2018-12-31] MEDS: Atorvastatin* 40 MG TAB PO SCH (09:45)
[2018-12-31] MEDS: Senna TAB PO SCH ×2 (09:45→21:44)
[2018-12-31] MEDS: Clopidogrel TAB* 75 MG PO SCH (09:45)
[2018-12-31] MEDS: Potassium & Sodium Phos 250MG* = 1 PACKET PO SCH ×3 (09:45→21:44)
[2018-12-31] MEDS: Cyanocobalamin TAB* 500 MCG PO SCH (09:45)
--- NOTE | 2018-12-31 10:14 | ECHO ---
*[facility]* [place] [address] Fax #: [phone] Transthoracic Echocardiogram Patient: Kirk, Height: 70 in / Romulo 177.8 cm : 1930 Weight: 188.6 lb / Study Date: 12/30/2018 85.7 kg Age: 88 BP: 147 / 57 Gender: M BMI/BSA: 27.1 kg/m^2 HR: 62 bpm / 2.04 m^2 *Manager Garden: Opal Ayers [facility] *Referring Physician: Sergo ThomasReading Physician: Roxanne Mi MD Indications: Cardiomyopathy History: PVD. Coronary artery disease. PMH: Myocardial infarction. Risk factors: Hypertension. Diabetes mellitus. Dyslipidemia. Labs, prior tests, procedures, and surgery: Catheterization. There was a stenosis which was treated with a stent. Conclusions Summary: 1. Left ventricle: Wall thickness is mildly increased. The estimated ejection fraction is 50-55%. Akinesis of the basalinferior myocardium. Doppler parameters are consistent with abnormal left ventricular relaxation (grade 1 diastolic dysfunction). 2. Right ventricle: Systolic function is normal. 3. All valves show good function, trace insufficiency. 4. Compared with prior echocardiogram of 09/07/18, ejection fraction and inferior wall motion abnormality are stable, valve function is stable. Study data: Transthoracic echocardiogram. Procedure: Transthoracic echocardiography was performed. Image quality was fair. Complete 2D, spectral Doppler, and color flow Doppler. Location: Bedside. Patient status: Inpatient. Patient room number: 407. Rhythm: Normal sinus rhythm with PVC's. Findings Left ventricle: The cavity size is normal. Wall thickness is mildly increased. Systolic function is normal. The estimated ejection fraction is 50-55%. Regional wall motion abnormalities: Akinesis of the basalinferior myocardium. Doppler parameters are consistent with abnormal left ventricular relaxation (grade 1 diastolic dysfunction). Right ventricle: The cavity size is normal. Systolic function is normal. Left atrium: The atrium is mildly dilated. Right atrium: The atrium is at the upper limits of normal in size. Mitral valve: The leaflets are normal thickness. There is no evidence of stenosis. There is trace regurgitation. Aortic valve: The valve is trileaflet. The leaflets are normal thickness. There is no evidence of stenosis. There is trivial regurgitation. Tricuspid valve: The leaflets are normal thickness. There is no evidence of stenosis. There is tracel regurgitation. Pulmonic valve: The leaflets are normal thickness. There is no evidence of stenosis. There is trivial regurgitation. Aorta: Aortic arch: The aortic arch is appears normal. The aortic root is not dilated. Pericardium: There is no significant pericardial effusion. Pulmonary arteries: Not well visualized. Systemic veins: Inferior vena cava: Not well visualized. Measurements Left ventricle Value Ref Right atrium continued Value Ref JENNIFER, LAX 5.0 cm 4.2 - 5.8 ML dim, ES, A4C 4.2 cm 2.6 - 4.4 ESD, LAX 3.6 cm 2.5 - 4.0 Estimated RAP 3 mm Hg --------- FS, LAX 29 % 25 - 43 PW, ED, LAX (H) 1.2 cm 0.6 - 1.0 Aortic valve Value Ref EF 56 % 52 - 72 Mini diam, ED 2.3 cm --------- E', lat mini, TDI (L) 7.2 cm/sec >=10.0 Peak v, S 0.98 m/sec ----- ---- E/e', lat mini, 8 VTI, S 21.2 cm -------- - TDI Mean grad, S 2.0 mm Hg --------- E', med mini, TDI (L) 6.9 cm/sec >=7.0 Peak grad, S 4.0 mm Hg ----- ---- E/e', med mini, 8 TDI Mitral valve Value Ref E', avg, TDI 7.1 cm/sec Peak E 0.55 m/sec -------- - E/e', avg, TDI 8 <=14 Peak A 0.68 m/sec ----- ---- Decel time 327 ms --------- LVOT Value Ref Peak E/A ratio 0.8 --------- Peak chelita, S 0.81 m/sec Mean grad, S 1 mm Hg Pulmonic valve Value Ref Peak v, S 0.7 m/sec --------- Ventricular septum Value Ref Peak grad, S 2.0 mm Hg --------- IVS, ED (H) 1.2 cm 0.6 - 1.0 Aortic root Value Ref Right ventricle Value Ref Root diam 3.1 cm <4.2 JENNIFER, LAX 3.0 cm JENNIFER minor ax, (H) 3.7 cm 1.9 - 3.5 Ascending aorta Value Ref A4C mid AAo AP diam, S 3.3 cm --------- Left atrium Value Ref Aortic arch Value Ref AP dim, ES 4.00 cm 3.00 - Arch diam 2.9 cm --------- 4.00 ML dim, A4C 4.6 cm Decending aorta Value Ref SI dim, A4C 5.8 cm Isamar peak chelita 0.45 m/sec --------- Vol/bsa, ES, A/L (H) 36 ml/m^2 16 - 34 Right atrium Value Ref SI dim, ES 5.3 cm 3.4 - 5.3 Legend: (L) and (H) cyndi values outside specified reference range. Prepared and electronically signed by Roxanne Howard MD 12/31/2018 10:13
--- NOTE | 2018-12-31 15:57 | PN ---
Subjective Date of Service: 12/31/18 Interval History: Sitting in chair on assessment with son at bedside. Patient reports he feels more like himself today. Denies leg or back pain. Reports urinary symptoms reported yesterday have improved. Denies fever, chills , numbness. tingling, cp, sob. Past Medical History: Unchanged from Admission Objective Active Medications: Acetaminophen (Tylenol Tab*) 650 mg PO Q4H PRN PRN Reason: FEVER/PAIN Al Hydrox/Mg Hydrox/Simethicone (Maalox Plus*) 30 ml PO Q6H PRN PRN Reason: INDIGESTION Aspirin (Aspirin 81 Mg Chew Tab*) 81 mg PO DAILY [facility] Last Admin: 12/31/18 09:45 Dose: 81 mg Atorvastatin Calcium (Lipitor*) 40 mg PO DAILY [facility] Last Admin: 12/31/18 09:45 Dose: 40 mg Clopidogrel Bisulfate (Plavix Tab*) 75 mg PO DAILY [facility] Last Admin: 12/31/18 09:45 Dose: 75 mg Cyanocobalamin (Vitamin B12 Tab*) 1,000 mcg PO DAILY [facility] Last Admin: 12/31/18 09:45 Dose: 1,000 mcg Dextrose (D50w Syringe 50 Ml*) 12.5 gm IV PUSH .FOR FS < 60 - SS PRN PRN Reason: FS < 60 Docusate Sodium (Colace Cap*) 100 mg PO BID [facility] Last Admin: 12/31/18 09:45 Dose: 100 mg Heparin Sodium (Porcine) (Heparin Vial(*)) 5,000 units SUBCUT Q8HR [facility] Last Admin: 12/31/18 13:13 Dose: 5,000 units Insulin Human Lispro (Humalog*) 0 units SUBCUT ACHS [facility]; Protocol Last Admin: 12/31/18 13:13 Dose: 2 units Magnesium Hydroxide (Milk Of Magnesia Liq*) 30 ml PO BID PRN PRN Reason: CONSTIPATION Magnesium Oxide (Magox 400 Tab*) 400 mg PO BID [facility] Last Admin: 12/31/18 09:45 Dose: 400 mg Metoprolol Tartrate (Lopressor Tab*) 12.5 mg PO DAILY [facility] Last Admin: 12/31/18 09:45 Dose: 12.5 mg Nystatin (Nystatin Suspension*) 500,000 units PO QID [facility] Stop: 01/03/19 23:13 Last Admin: 12/31/18 13:13 Dose: 500,000 units Ondansetron HCl (Zofran Inj*) 4 mg IV Q4H PRN PRN Reason: NAUSEA/VOMITING Potassium Phos/Sodium Phos (Neutra Phos 250 Mg Xavier*) 250 mg PO TID [facility] Last Admin: 12/31/18 13:14 Dose: 250 mg Senna (Senokot Tab*) 1 tab PO BID [facility] Last Admin: 12/31/18 09:45 Dose: 1 tab Vital Signs - 8 hr 12/31/18 12/31/18 12/31/18 07:57 08:00 11:15 Temperature 98.0 F 97.8 F Pulse Rate 58 63 Respiratory 17 15 16 Rate Blood Pressure 145/51 122/52 (mmHg) O2 Sat by Pulse 93 93 95 Oximetry Oxygen Devices in Use Now: None Appearance: Comfortable, NAD Eyes: No Scleral Icterus Ears/Nose/Mouth/Throat: Clear Oropharnyx, Mucous Membranes Moist Neck: NL Appearance and Movements; NL JVP Respiratory: Symmetrical Chest Expansion and Respiratory Effort, Clear to Auscultation Cardiovascular: NL Sounds; No Murmurs; No JVD, RRR, No Edema Abdominal: NL Sounds; No Tenderness; No Distention Lymphatic: No Cervical Adenopathy Extremities: No Edema Skin: No Rash or Ulcers Neurological: Alert and Oriented x 3, NL Muscle Strength and Tone Nutrition: Taking PO's Result Diagrams: 12/31/18 06:25 12/31/18 06:25 Additional Lab and Data: Laboratory Results - last 24 hr 12/30/18 12/30/18 12/31/18 17:10 20:19 06:13 WBC RBC Hgb Hct MCV MCH MCHC RDW Plt Count MPV Neut % (Auto) Lymph % (Auto) [place] % (Auto) Eos % (Auto) Baso % (Auto) Absolute Neuts (auto) Absolute Lymphs (auto) Absolute Monos (auto) Absolute Eos (auto) Absolute Basos (auto) Absolute Nucleated RBC Nucleated RBC % ESR Sodium Potassium Chloride Carbon Dioxide Anion Gap BUN Creatinine Est GFR ( Amer) Est GFR (Non-Af Amer) BUN/Creatinine Ratio Glucose POC Glucose (mg/dL) 107 H 151 H Hemoglobin A1c 7.6 H Calcium Magnesium C-Reactive Protein Vitamin B12 Urine Color Urine Appearance Urine pH Ur Specific [place] Urine Protein Urine Ketones Urine Blood Urine Nitrate Urine Bilirubin Urine Urobilinogen Ur Leukocyte Esterase Urine WBC (Auto) Urine RBC (Auto) Urine Bacteria Urine Glucose 12/31/18 12/31/18 12/31/18 06:15 06:25 06:25 WBC 5.9 RBC 4.14 L Hgb 11.6 L Hct 35 L MCV 85 MCH 28 MCHC 33 RDW 15 Plt Count 158 MPV 8.5 Neut % (Auto) 61.0 Lymph % (Auto) 28.5 [place] % (Auto) 6.7 Eos % (Auto) 2.4 Baso % (Auto) 1.4 Absolute Neuts (auto) 3.6 Absolute Lymphs (auto) 1.7 Absolute Monos (auto) 0.4 Absolute Eos (auto) 0.1 Absolute Basos (auto) 0.1 Absolute Nucleated RBC 0.0 Nucleated RBC % 0.0 ESR 13 Sodium 135 Potassium 4.2 Chloride 105 Carbon Dioxide 25 Anion Gap 5 BUN 17 Creatinine 0.94 Est GFR ( Amer) 91.4 Est GFR (Non-Af Amer) 75.6 BUN/Creatinine Ratio 18.1 Glucose 115 H POC Glucose (mg/dL) Hemoglobin A1c Calcium 9.3 Magnesium 2.0 C-Reactive Protein 2.18 Vitamin B12 260 Urine Color Yellow Urine Appearance Clear Urine pH 5.0 Ur Specific [place] 1.018 Urine Protein Negative Urine Ketones Negative Urine Blood 1+ A Urine Nitrate Negative Urine Bilirubin Negative Urine Urobilinogen Negative Ur Leukocyte Esterase Negative Urine WBC (Auto) Absent Urine RBC (Auto) 1+(3-5/hpf) A Urine Bacteria Absent Urine Glucose Negative 12/31/18 12/31/18 07:25 11:54 WBC RBC Hgb Hct MCV MCH MCHC RDW Plt Count MPV Neut % (Auto) Lymph % (Auto) [place] % (Auto) Eos % (Auto) Baso % (Auto) Absolute Neuts (auto) Absolute Lymphs (auto) Absolute Monos (auto) Absolute Eos (auto) Absolute Basos (auto) Absolute Nucleated RBC Nucleated RBC % ESR Sodium Potassium Chloride Carbon Dioxide Anion Gap BUN Creatinine Est GFR ( Amer) Est GFR (Non-Af Amer) BUN/Creatinine Ratio Glucose POC Glucose (mg/dL) 134 H 164 H Hemoglobin A1c Calcium Magnesium C-Reactive Protein Vitamin B12 Urine Color Urine Appearance Urine pH Ur Specific [place] Urine Protein Urine Ketones Urine Blood Urine Nitrate Urine Bilirubin Urine Urobilinogen Ur Leukocyte Esterase Urine WBC (Auto) Urine RBC (Auto) Urine Bacteria Urine Glucose Microbiology and Other Data: Microbiology 12/27/18 20:10 Blood Venous Aerobic Blood Culture - Preliminary No Growth Day 2 12/27/18 20:10 Blood Venous Anaerobic Blood Culture - Preliminary No Growth Day 2 12/27/18 19:57 Blood Venous Aerobic Blood Culture - Preliminary No Growth Day 2 12/27/18 19:57 Blood Venous Anaerobic Blood Culture - Preliminary No Growth Day 2 12/27/18 20:35 Urine Urine Culture - Final No Growth (<1,000 CFU/mL) Assess/Plan/Problems-Billing Assessment: 88 y/o male admitted for weakness, falls and fever. admitted for presumed UTI ( ruled out), now consider possible syncope v.s musculoskeletal - Patient Problems (1) Constipation Comment: - Reports small BM today - Continue Senna and Colace scheduled for now. (2) Fall Comment: - Etiology unlcear if mechanical, musculoskeletal or cardiac syncope? - Unable to recall most of the events leading up to presentation to ED - Reports previous pain from thigh to knees bilaterally. Reports this has resolved. - On tele due to occasional bradycardia and atrial bijemimy. His Lopressor was held previously. Restarted at half dose per Dr Howard recommendations - Cont Finger Stick AQC and HS to rule out hypoglycemia. - Xray from [facility] on 12/26 revealed degenerative changes of lumbar spine and disc space narrowing. - Would benefit from LINQ placement as outpatient - May also benefit from neurology evaluation as outpatient - Could have also been secondary to viral illness. (3) Fever Comment: - BC and UC so far negative, and his CXR atelectasisi no infiltrate. - Fever improved on empirically ceftriaxone day # 3 - Ceftriaxone discontinued 12/29 given negative culture work up. Could have been viral? (4) UTI (urinary tract infection) Comment: - Initially ruled out due to negative culture and abx discontinued yesterday - Given c/o urinary symptoms yesterday UA repeated and no sign of infection. Post void bladder scan also unremarkable (5) Back pain Comment: - Xray from [facility] as above - Denies pain at this time (6) CAD in [place] artery Comment: - Continue aspirin 81 mg daily, lipitor 40 mg HS, plavix 75 mg daily, Lopressor at lower dose of 12.5 mg daily - Cardiology consulting - Tele reveals sinus nena in 50s - Repeat echo unremarkable (7) Diabetes mellitus Current Visit: No Status: Chronic Code(s): E11.9 - TYPE 2 DIABETES MELLITUS WITHOUT COMPLICATIONS SNOMED Code(s): 37152491 Comment: - Hx of diabetes. On no medication at home - Cont routine FSBG to ensure he is not have hypoglycemia. - Cont SS - Hemoglobin A1c 7.6 (8) PVD (peripheral vascular disease) Comment: - Continue aspirin 81 mg daily, lipitor 40 mg HS, plavix 75 mg daily - Given his leg weakness and pain arterial doppler ordered and reveal bilat le arterial atherosclerotic disease without vessel occlusion - PT did see the patient and recommended continue PT and may benefit from Rehab. Will defer to case investigator (9) DVT prophylaxis Comment: - Hep 5000 Q8hrs Status and Disposition: Inpatient. SOLANGE when medically stable Attending: Joey Chase
[2019-01-01 06:01] LABS: ABS Basophils 0.1 10^3/ul (0-0.2); ABS Eosinophils 0.1 10^3/ul (0-0.6); ABS Lymphocytes 1.8 10^3/ul (1.0-4.8); ABS Monocytes 0.4 10^3/ul (0-0.8); Eosinophil % 2.2 %; Hematocrit 39 % (42-52); Hemoglobin 12.8 g/dL (14.0-18.0); Lymphocyte % 27.7 %; Mean Corpuscular HGB Conc 33 g/dL (31-36); Mean Corpuscular Hemoglobin 28 pg (27-31); Mean Corpuscular Volume 86 fL (80-94); Mean Platelet Volume 8.8 fL (7.4-10.4); Nucleated Red Blood Cells % 0.1; Platelet Count 218 10^3/uL (150-450); Red Blood Count 4.51 10^6 /uL (4.18-5.48); Red Cell Distribution Width 16 % (10.5-15); White Blood Count 6.4 10^3/uL (3.5-10.8)
[2019-01-01] MEDS: Heparin VIAL(*) 5000 UNITS/ML VIAL (FIVE THOUSAND) SUBCUT SCH ×3 (06:24→23:21)
[2019-01-01] MEDS: Insulin LISPRO* 1 UNITS UNIT SUBCUT SCH ×4 (08:18→23:22)
[2019-01-01] MEDS: Metoprolol Tartrate TAB* 25 MG PO SCH (08:48)
[2019-01-01] MEDS: Docusate CAP* 100 MG PO SCH ×2 (08:48→23:21)
[2019-01-01] MEDS: Aspirin 81 mg CHEW TAB* 81 MG TAB.CHEW PO SCH (08:48)
[2019-01-01] MEDS: Senna TAB PO SCH ×2 (08:48→23:22)
[2019-01-01] MEDS: Atorvastatin* 40 MG TAB PO SCH (08:48)
[2019-01-01] MEDS: Cyanocobalamin TAB* 500 MCG PO SCH (08:48)
[2019-01-01] MEDS: Clopidogrel TAB* 75 MG PO SCH (08:48)
[2019-01-01] MEDS: Magnesium Oxide TAB* 400 MG PO SCH ×2 (08:48→23:22)
[2019-01-01] MEDS: Potassium & Sodium Phos 250MG* = 1 PACKET PO SCH ×3 (08:48→23:22)
[2019-01-01] MEDS: Nystatin SUSPENSION* 100000 UNITS/ML 5 ML UDC PO SCH ×4 (08:49→23:21)
--- NOTE | 2019-01-01 18:32 | PN ---
Subjective Date of Service: 01/01/19 Interval History: Resting in chair on assessment. Reports he feels improved today. Reports he feels more like himself than he did previously. Denies leg and back pain. Denies weakness, cp, palpitations, nausea, vomiting, fever, chills. Past Medical History: Unchanged from Admission Objective Active Medications: Acetaminophen (Tylenol Tab*) 650 mg PO Q4H PRN PRN Reason: FEVER/PAIN Al Hydrox/Mg Hydrox/Simethicone (Maalox Plus*) 30 ml PO Q6H PRN PRN Reason: INDIGESTION Aspirin (Aspirin 81 Mg Chew Tab*) 81 mg PO DAILY [facility] Last Admin: 01/01/19 08:48 Dose: 81 mg Atorvastatin Calcium (Lipitor*) 40 mg PO DAILY [facility] Last Admin: 01/01/19 08:48 Dose: 40 mg Clopidogrel Bisulfate (Plavix Tab*) 75 mg PO DAILY [facility] Last Admin: 01/01/19 08:48 Dose: 75 mg Cyanocobalamin (Vitamin B12 Tab*) 1,000 mcg PO DAILY [facility] Last Admin: 01/01/19 08:48 Dose: 1,000 mcg Dextrose (D50w Syringe 50 Ml*) 12.5 gm IV PUSH .FOR FS < 60 - SS PRN PRN Reason: FS < 60 Docusate Sodium (Colace Cap*) 100 mg PO BID [facility] Last Admin: 01/01/19 08:48 Dose: 100 mg Heparin Sodium (Porcine) (Heparin Vial(*)) 5,000 units SUBCUT Q8HR [facility] Last Admin: 01/01/19 12:58 Dose: 5,000 units Insulin Human Lispro (Humalog*) 0 units SUBCUT ACHS [facility]; Protocol Last Admin: 01/01/19 17:30 Dose: 2 units Magnesium Hydroxide (Milk Of Magnesia Liq*) 30 ml PO BID PRN PRN Reason: CONSTIPATION Magnesium Oxide (Magox 400 Tab*) 400 mg PO BID [facility] Last Admin: 01/01/19 08:48 Dose: 400 mg Metoprolol Tartrate (Lopressor Tab*) 12.5 mg PO DAILY [facility] Last Admin: 01/01/19 08:48 Dose: 12.5 mg Nystatin (Nystatin Suspension*) 500,000 units PO QID [facility] Stop: 01/03/19 23:13 Last Admin: 01/01/19 16:27 Dose: Not Given Ondansetron HCl (Zofran Inj*) 4 mg IV Q4H PRN PRN Reason: NAUSEA/VOMITING Potassium Phos/Sodium Phos (Neutra Phos 250 Mg Xavier*) 250 mg PO TID [facility] Last Admin: 01/01/19 12:59 Dose: 250 mg Senna (Senokot Tab*) 1 tab PO BID [facility] Last Admin: 01/01/19 08:48 Dose: 1 tab Vital Signs - 8 hr 01/01/19 01/01/19 11:32 15:47 Temperature 98.0 F 97.8 F Pulse Rate 62 64 Respiratory 18 20 Rate Blood Pressure 141/79 124/60 (mmHg) O2 Sat by Pulse 99 97 Oximetry Oxygen Devices in Use Now: None Appearance: Comfortable, NAD Eyes: PERRLA Ears/Nose/Mouth/Throat: Clear Oropharnyx, Mucous Membranes Moist Neck: NL Appearance and Movements; NL JVP Respiratory: Symmetrical Chest Expansion and Respiratory Effort, Clear to Auscultation Cardiovascular: NL Sounds; No Murmurs; No JVD, RRR, No Edema Abdominal: NL Sounds; No Tenderness; No Distention Lymphatic: No Cervical Adenopathy Extremities: No Clubbing, Cyanosis Skin: No Rash or Ulcers Neurological: Alert and Oriented x 3, NL Sensation, NL Muscle Strength and Tone Nutrition: Taking PO's Result Diagrams: 01/01/19 05:36 12/31/18 06:25 Additional Lab and Data: Laboratory Results - last 24 hr 12/31/18 01/01/19 01/01/19 21:09 05:36 08:15 WBC 6.4 RBC 4.51 Hgb 12.8 L Hct 39 L MCV 86 MCH 28 MCHC 33 RDW 16 H Plt Count 218 MPV 8.8 Neut % (Auto) 62.8 Lymph % (Auto) 27.7 [place] % (Auto) 6.3 Eos % (Auto) 2.2 Baso % (Auto) 1.0 Absolute Neuts (auto) 4.0 Absolute Lymphs (auto) 1.8 Absolute Monos (auto) 0.4 Absolute Eos (auto) 0.1 Absolute Basos (auto) 0.1 Absolute Nucleated RBC 0.0 Nucleated RBC % 0.1 POC Glucose (mg/dL) 164 H 132 H 01/01/19 01/01/19 11:32 16:37 WBC RBC Hgb Hct MCV MCH MCHC RDW Plt Count MPV Neut % (Auto) Lymph % (Auto) [place] % (Auto) Eos % (Auto) Baso % (Auto) Absolute Neuts (auto) Absolute Lymphs (auto) Absolute Monos (auto) Absolute Eos (auto) Absolute Basos (auto) Absolute Nucleated RBC Nucleated RBC % POC Glucose (mg/dL) 158 H 153 H Microbiology and Other Data: Microbiology 12/27/18 19:57 Blood Venous Aerobic Blood Culture - Preliminary No Growth Day 4 12/27/18 19:57 Blood Venous Anaerobic Blood Culture - Preliminary No Growth Day 4 12/27/18 20:10 Blood Venous Aerobic Blood Culture - Preliminary No Growth Day 4 12/27/18 20:10 Blood Venous Anaerobic Blood Culture - Preliminary No Growth Day 12/27/18 20:35 Urine Urine Culture - Final No Growth (<1,000 CFU/mL) Assess/Plan/Problems-Billing Assessment: 88 y/o male admitted for weakness, falls and fever. admitted for presumed UTI ( ruled out), now consider possible syncope v.s musculoskeletal - Patient Problems (1) Constipation Comment: - Resolved (2) Fall Comment: - Suspected mechanical, musculoskeletal or cardiac syncope - Noted to be bradycardic in the 40s on admission. BB decreased and no longer having heart rates in the 40s on tele - Reports previous pain from thigh to knees bilaterally. Reports this has resolved. - Finger Stick AQC and HS to rule out hypoglycemia. No noted hypoglycemic episodes during stay. - Plan for LINQ placement as outpatient - Recommend neurology evaluation as outpatient (3) Fever Comment: - BC and UC so far negative, and his CXR atelectasisi no infiltrate. - Fever improved on empirically ceftriaxone day # 3 - Ceftriaxone discontinued 12/29 given negative culture work up. Could have been viral? - Patient has been fever free since admission (4) UTI (urinary tract infection) Comment: - Initially ruled out due to negative culture and abx discontinued yesterday - Given c/o urinary symptoms yesterday UA repeated and no sign of infection. Post void bladder scan also unremarkable (5) Back pain Comment: - Resolved (6) CAD in [place] artery Comment: - Continue aspirin 81 mg daily, lipitor 40 mg HS, plavix 75 mg daily, Lopressor at lower dose of 12.5 mg daily - Cardiology consulting - Tele reveals sinus nena in 50s to 60s - Repeat echo unremarkable - LINQ as outpatient (7) Diabetes mellitus Current Visit: No Status: Chronic Code(s): E11.9 - TYPE 2 DIABETES MELLITUS WITHOUT COMPLICATIONS SNOMED Code(s): 07944309 Comment: - Hx of diabetes. On no medication at home - No hypoglycemia noted during stay. Mostly elevated BG - Hemoglobin A1c 7.6 - Consider starting Metformin on discharge (8) PVD (peripheral vascular disease) Comment: - Continue aspirin 81 mg daily, lipitor 40 mg HS, plavix 75 mg daily - Given his leg weakness and pain arterial doppler ordered and reveal bilat le arterial atherosclerotic disease without vessel occlusion - PT did see the patient and recommended continue PT and may benefit from Rehab. Will defer to corrections caseworker (9) DVT prophylaxis Comment: - Hep 5000 Q8hrs Status and Disposition: Inpatient. SOLANGE when medically stable Attending: Ingrid Singh
[2019-01-02] MEDS: Heparin VIAL(*) 5000 UNITS/ML VIAL (FIVE THOUSAND) SUBCUT SCH ×3 (06:31→22:18)
[2019-01-02] MEDS: Insulin LISPRO* 1 UNITS UNIT SUBCUT SCH ×4 (08:23→23:42)
[2019-01-02] MEDS: Magnesium Oxide TAB* 400 MG PO SCH ×2 (08:24→22:17)
[2019-01-02] MEDS: Docusate CAP* 100 MG PO SCH ×2 (08:24→22:17)
[2019-01-02] MEDS: Nystatin SUSPENSION* 100000 UNITS/ML 5 ML UDC PO SCH ×4 (08:24→22:17)
[2019-01-02] MEDS: Aspirin 81 mg CHEW TAB* 81 MG TAB.CHEW PO SCH (08:24)
[2019-01-02] MEDS: Atorvastatin* 40 MG TAB PO SCH (08:24)
[2019-01-02] MEDS: Potassium & Sodium Phos 250MG* = 1 PACKET PO SCH ×3 (08:24→22:19)
[2019-01-02] MEDS: Senna TAB PO SCH ×2 (08:24→22:18)
[2019-01-02] MEDS: Cyanocobalamin TAB* 500 MCG PO SCH (08:24)
[2019-01-02] MEDS: Metoprolol Tartrate TAB* 25 MG PO SCH (08:24)
[2019-01-02] MEDS: Clopidogrel TAB* 75 MG PO SCH (08:25)
[2019-01-02] MEDS ORDERED: Cyanocobalamin INJ * 1,000 MCG/ML VIAL 1 ML VIAL IM ONE (15:04)
--- NOTE | 2019-01-02 16:39 | CONS ---
NEUROLOGY CONSULTATION NOTE: DATE OF CONSULT: 01/02/19 CONSULTING PROVIDER: Elly Shi NP REASON FOR CONSULT: Falls and inability to remember the fall. CHIEF COMPLAINT: Fall. HISTORY OF PRESENT ILLNESS: Mr. 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 Please note that the history was mostly obtained by the patient's son via telephone as the patient has no recollection of the fall. I personally contacted Damion Bradley and obtained the history. The patient lives in [place] in his own home with a roommate. The patient was found standing next to a plant. Then minutes later, his friend went to clean up the plant waste that fell and broke, but then he came back to notice that the patient was on the floor. The patient does not remember falling. Her was trying to get up, but he was having difficulty doing so. The patient's friend, Isaak, was unable to get him up and EMS was contacted. The patient denied any head injury. The patient did lose awareness during that time. On arrival to the ED, the patient was found to be febrile with a temperature of 101 and oxygen saturation in the 80s. He was admitted to the hospital for further evaluation. Neurology was consulted to evaluate for falls. The patient was complaining of low back pain radiating down the right and left proximal upper extremities. The pain has resolved now. He denied any impairment in his bowel or bladder functions. He is hard of hearing. He stated that he has never had any focal weakness, but since the hospitalization has noticed slightly more debilitated due to the inability to ambulate. The patient is worried about his memory. He thinks that he feels slightly confused at times. He is unable to cook for himself and he has a roommate that usually performs most of the complicated activities of daily living. He is able to feed and dress himself. There was no reported seizure-like activity. The patient has no history of stroke or seizures. There is no family history of epilepsy. The patient denied any history of meningitis or encephalitis. According to the patient's son, the patient has significantly improved today. His cognition is back to his normal self, but he is still slow ambulating. He was able to walk around the hallway and walked to the bathroom unassisted. The patient in the ED was found to have a documented heart rate of 36. It is unclear if this is the correct heart rate. The patient last year had a similar cognitive decline in the setting of fevers and after antibiotic therapy, he recovered fairly well. They were unable to find the source of his fever. He was evaluated by Dr. Howard from Cardiology, who recommended LINQ device PAST MEDICAL HISTORY: NSTEMI, status post PCI; coronary artery disease; diabetes mellitus type 2; peripheral vascular disease; hyperlipidemia. HOME MEDICATIONS: 1. Simvastatin 40 mg daily. 2. Metoprolol 25 mg p.o. daily. 3. Aspirin 81 mg p.o. daily. 4. Clopidogrel 75 mg p.o. daily. ALLERGIES: No known drug allergies. FAMILY HISTORY: No history of stroke or seizures. SOCIAL HISTORY: The lives alone with his roommate, Musa. He is independent of most activities of daily living. He does drive and play the piano. He denied any alcohol use. He was a smoker for approximately 50 years. REVIEW OF SYSTEMS: A 14-point review of system was obtained and otherwise negative except for what was mentioned in the HPI. PHYSICAL EXAM: Vitals: Temperature of 98.2, pulse of 59, respiratory rate of 20, oxygen saturation of 96%, blood pressure of 115/91. General: Frail elderly man, who appears stated age, in no acute distress. Head: Normocephalic , atraumatic. Eyes: Conjunctivae/corneas are clear. Neck is supple and symmetrical, no carotid bruit. Lungs are clear to auscultation bilaterally. Cardiovascular: Regular rate and rhythm. Extremities: Normal range of motion with no cyanosis. Skin: No skin lesions or laceration. Psych: Affect is broad and normal mood. Neurological Examination: Mental status: Awake, alert and oriented to person, place, time, and general circumstances. Speech and language including expression, naming, repetition, and comprehension were assessed and found to be normal. He does have mild psychomotor slowing. However, he answered all the cognitive questions correctly. Cranial Nerves: Normal confrontation testing bilaterally. Pupils are mid range and reactive to light. Normal consensual response. Extraocular muscles are intact. He has sensations intact on the forehead, cheeks, and jaw region bilaterally. No facial droop. He is hard of hearing. Symmetrical palatal elevation. Normal strength against shoulder shrug. Tongue is symmetrical and midline with no atrophy or fasciculation. Motor Examination: No abnormal movements or pronator drift. He has got 5/5 strength in the upper and lower extremities. Normal tone throughout. Reflexes: Right/left, brachioradialis 1/1, biceps 1/1 , triceps 1/1, patella 1/1, ankle 0/0, plantar flexor/flexor. Sensation: There is distal to proximal sensory gradient to light touch and pinprick, demarcated at the ankles bilaterally. Nearly absent vibratory sensation. Intact vibration to medial malleolus and the knees bilaterally. Coordination: Normal [id number] and rapid alternating movement. Gait: Broad-based gait. No ataxia. DIAGNOSTIC STUDIES/LAB DATA: WBC of 5.9, hemoglobin of 11.6, hematocrit of 35, platelet count of 158. Sodium of 135, potassium 4.2, chloride 105, carbon dioxide 25, anion gap of 5, BUN of 17, creatinine of 0.94, glucose of 115, hemoglobin A1c of 7.6, calcium 9.3, magnesium 2.0, C-reactive protein 2.18, vitamin B12 is 260. Urinalysis is negative for pyuria. CT head without contrast was personally reviewed and obtained on 12/30/18. There are no acute intracranial abnormalities or mass effects. ASSESSMENT AND RECOMMENDATIONS: Mr. Romulo Bradley is an 88-year-old man with no history of stroke or seizures, who presented with an unwitnessed fall associated with questionable loss of consciousness followed by confusion. The workup initially revealed an episode of bradycardia as well as high fevers. The patient's temperature has improved and his heart rate is within normal range. There is no clear etiology to the fall; however, seizure is less likely given that he has no significant risk factors for seizures. He has no lateralizing neurological symptoms to suspect an acute stroke. In regards to the confusion following the fall, I suspect the patient has underlying mild cognitive impairment. Formal cognitive testing can be done as an outpatient. His memory and cognition seems to be much better after controlling the fevers. 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 The neuropathy could be related to slightly low B12, age, or polyneuropathy related to diabetes. Given the neuropathy, he is at increased risk for falls, but that should not contribute to his cognitive function unless he has autonomic dysfunction and has episodes of hypoperfusion. If not yet obtained, please check orthostatic vitals. He was found to have a low normal vitamin B12. I have ordered for one dose of cyanocobalamin 1000 mcg IM x1. I agree with continuing 1000 mcg p.o. I personally contacted the patient's son and discussed this case with him in detail. I will sign off but please contact me for any questions or concerns. TIME SPENT: I spent 75 minutes of which more than 50% was spent obtaining history, examining the patient, education, counseling, discussing the result and treatment options with the patient and his son. The patient may benefit from a short-term rehabilitation since he has been hospitalized for so long and he is trying to slowly recover and improve his gait back to his baseline status. I will sign off, but please note that I am available for any questions or concerns. [id number]/CPS #: [id number] RACIEL
--- NOTE | 2019-01-02 18:49 | PN ---
Subjective Date of Service: 01/02/19 Interval History: Sitting in chair and with son at bedside. Patient states he feels "much better" today. He feels like he is getting closer to his baseline. Denies urinary symptoms. Denies cp, palpitations, sob, nausea, vomiting, diarrhea. Past Medical History: Unchanged from Admission Objective Active Medications: Acetaminophen (Tylenol Tab*) 650 mg PO Q4H PRN PRN Reason: FEVER/PAIN Al Hydrox/Mg Hydrox/Simethicone (Maalox Plus*) 30 ml PO Q6H PRN PRN Reason: INDIGESTION Aspirin (Aspirin 81 Mg Chew Tab*) 81 mg PO DAILY [facility] Last Admin: 01/02/19 08:24 Dose: 81 mg Atorvastatin Calcium (Lipitor*) 40 mg PO DAILY [facility] Last Admin: 01/02/19 08:24 Dose: 40 mg Clopidogrel Bisulfate (Plavix Tab*) 75 mg PO DAILY [facility] Last Admin: 01/02/19 08:25 Dose: 75 mg Cyanocobalamin (Vitamin B12 Tab*) 1,000 mcg PO DAILY [facility] Last Admin: 01/02/19 08:24 Dose: 1,000 mcg Dextrose (D50w Syringe 50 Ml*) 12.5 gm IV PUSH .FOR FS < 60 - SS PRN PRN Reason: FS < 60 Docusate Sodium (Colace Cap*) 100 mg PO BID [facility] Last Admin: 01/02/19 08:24 Dose: 100 mg Heparin Sodium (Porcine) (Heparin Vial(*)) 5,000 units SUBCUT Q8HR [facility] Last Admin: 01/02/19 12:30 Dose: 5,000 units Insulin Human Lispro (Humalog*) 0 units SUBCUT [facility]; Protocol Last Admin: 01/02/19 17:31 Dose: Not Given Magnesium Hydroxide (Milk Of Magnesia Liq*) 30 ml PO BID PRN PRN Reason: CONSTIPATION Magnesium Oxide (Magox 400 Tab*) 400 mg PO BID [facility] Last Admin: 01/02/19 08:24 Dose: 400 mg Metoprolol Tartrate (Lopressor Tab*) 12.5 mg PO DAILY [facility] Last Admin: 01/02/19 08:24 Dose: 12.5 mg Nystatin (Nystatin Suspension*) 500,000 units PO QID [facility] Stop: 01/03/19 23:13 Last Admin: 01/02/19 17:31 Dose: Not Given Ondansetron HCl (Zofran Inj*) 4 mg IV Q4H PRN PRN Reason: NAUSEA/VOMITING Potassium Phos/Sodium Phos (Neutra Phos 250 Mg Xavier*) 250 mg PO TID [facility] Last Admin: 01/02/19 12:31 Dose: 250 mg Senna (Senokot Tab*) 1 tab PO BID [facility] Last Admin: 01/02/19 08:24 Dose: 1 tab Vital Signs - 8 hr 01/02/19 01/02/19 11:52 15:45 Temperature 98.2 F 98.0 F Pulse Rate 59 57 Respiratory 20 20 Rate Blood Pressure 115/91 143/50 (mmHg) O2 Sat by Pulse 96 97 Oximetry Oxygen Devices in Use Now: None Appearance: Comfortable, NAD Eyes: No Scleral Icterus, PERRLA Ears/Nose/Mouth/Throat: Mucous Membranes Moist Neck: NL Appearance and Movements; NL JVP Respiratory: Symmetrical Chest Expansion and Respiratory Effort, Clear to Auscultation Cardiovascular: NL Sounds; No Murmurs; No JVD, RRR, No Edema Abdominal: NL Sounds; No Tenderness; No Distention Lymphatic: No Cervical Adenopathy Extremities: No Clubbing, Cyanosis Skin: No Rash or Ulcers Neurological: Alert and Oriented x 3, NL Muscle Strength and Tone Nutrition: Taking PO's Result Diagrams: 01/01/19 05:36 12/31/18 06:25 Additional Lab and Data: Laboratory Results - last 24 hr 01/01/19 01/02/19 01/02/19 21:36 08:18 11:15 POC Glucose (mg/dL) 196 H 127 H 163 H 01/02/19 17:25 POC Glucose (mg/dL) 144 H Microbiology and Other Data: Microbiology 12/27/18 19:57 Blood Venous Aerobic Blood Culture - Preliminary No Growth Day 4 12/27/18 19:57 Blood Venous Anaerobic Blood Culture - Preliminary No Growth Day 4 12/27/18 20:10 Blood Venous Aerobic Blood Culture - Preliminary No Growth Day 4 12/27/18 20:10 Blood Venous Anaerobic Blood Culture - Preliminary No Growth Day 4 12/27/18 20:35 Urine Urine Culture - Final No Growth (<1,000 CFU/mL) Assess/Plan/Problems-Billing Assessment: 88 y/o male admitted for weakness, falls and fever. admitted for presumed UTI ( ruled out), now consider possible syncope v.s musculoskeletal - Patient Problems (1) Confusion Comment: - Improving. - Secondary to fever and infection? - Neurology evaluated and recommends formal cognitive testing as outpatient. (2) Fall Comment: - Suspected mechanical, musculoskeletal or cardiac syncope - Noted to be bradycardic in the 40s on admission. BB decreased and no longer having heart rates in the 40s on tele - Reports previous pain from thigh to knees bilaterally. Reports this has resolved. - Finger Stick AQC and HS to rule out hypoglycemia. No noted hypoglycemic episodes during stay. 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 (3) Constipation Comment: - Resolved (4) Fever Comment: - BC and UC so far negative, and his CXR atelectasisi no infiltrate. - Fever improved on empirically ceftriaxone day # 3 - Ceftriaxone discontinued 12/29 given negative culture work up. Could have been viral? - Patient has been fever free since admission (5) UTI (urinary tract infection) Comment: - Initially ruled out due to negative culture and abx discontinued yesterday - Given c/o urinary symptoms yesterday UA repeated and no sign of infection. Post void bladder scan also unremarkable (6) Back pain Comment: - Resolved (7) CAD in [place] artery Comment: - Continue aspirin 81 mg daily, lipitor 40 mg HS, plavix 75 mg daily, Lopressor at lower dose of 12.5 mg daily - Cardiology consulting - Tele reveals sinus nena in 50s to 60s - Repeat echo unremarkable - LINQ as outpatient (8) Diabetes mellitus Current Visit: No Status: Chronic Code(s): E11.9 - TYPE 2 DIABETES MELLITUS WITHOUT COMPLICATIONS SNOMED Code(s): 50217782 Comment: - Hx of diabetes. On no medication at home - No hypoglycemia noted during stay. Mostly elevated BG - Hemoglobin A1c 7.6 - Consider starting Metformin on discharge (9) PVD (peripheral vascular disease) Comment: - Continue aspirin 81 mg daily, lipitor 40 mg HS, plavix 75 mg daily - Given his leg weakness and pain arterial doppler ordered and reveal bilat le arterial atherosclerotic disease without vessel occlusion - PT did see the patient and recommended continue PT and may benefit from Rehab. Will defer to mental health case manager (10) DVT prophylaxis Comment: - Hep 5000 Q8hrs Status and Disposition: Inpatient. [place]. Attending: Ingrid Singh
[2019-01-03] MEDS: Heparin VIAL(*) 5000 UNITS/ML VIAL (FIVE THOUSAND) SUBCUT SCH ×3 (05:56→22:19)
[2019-01-03 06:39] LABS: Calcium 10.1 mg/dL (8.6-10.3); EGFR African American 92.6 (>60); EGFR Non-African American 76.5 (>60); Potassium 4.5 mmol/L (3.5-5.0)
[2019-01-03] MEDS: Insulin LISPRO* 1 UNITS UNIT SUBCUT SCH ×4 (08:18→22:21)
[2019-01-03] MEDS: Atorvastatin* 40 MG TAB PO SCH (09:35)
[2019-01-03] MEDS: Clopidogrel TAB* 75 MG PO SCH (09:36)
[2019-01-03] MEDS: Cyanocobalamin TAB* 500 MCG PO SCH (09:36)
[2019-01-03] MEDS: Docusate CAP* 100 MG PO SCH ×2 (09:36→22:13)
[2019-01-03] MEDS: Magnesium Oxide TAB* 400 MG PO SCH ×2 (09:36→22:12)
[2019-01-03] MEDS: Aspirin 81 mg CHEW TAB* 81 MG TAB.CHEW PO SCH (09:37)
[2019-01-03] MEDS: Metoprolol Tartrate TAB* 25 MG PO SCH (09:37)
[2019-01-03] MEDS: Potassium & Sodium Phos 250MG* = 1 PACKET PO SCH ×3 (09:37→22:12)
[2019-01-03] MEDS: Nystatin SUSPENSION* 100000 UNITS/ML 5 ML UDC PO SCH ×4 (09:37→22:17)
[2019-01-03] MEDS: Senna TAB PO SCH ×2 (09:37→22:13)
--- NOTE | 2019-01-03 15:19 | PN ---
Subjective Date of Service: 01/03/19 Length of Stay: 7 Days Neurology is following for falls. Interval History: He is resting comfortable in no distress. He walked around the unit three times. He is very proud of this accomplishment. He is looking forward to go to short term rehab then go back home. He does not think he will live long but when asked, he stated that he's just getting old. Review of Systems: Denied CP, SOB, or palpitations. Past Medical History: Unchanged from Admission Objective Active Medications: Acetaminophen (Tylenol Tab*) 650 mg PO Q4H PRN PRN Reason: FEVER/PAIN Al Hydrox/Mg Hydrox/Simethicone (Maalox Plus*) 30 ml PO Q6H PRN PRN Reason: INDIGESTION Aspirin (Aspirin 81 Mg Chew Tab*) 81 mg PO DAILY [facility] Last Admin: 01/03/19 09:37 Dose: 81 mg Atorvastatin Calcium (Lipitor*) 40 mg PO DAILY [facility] Last Admin: 01/03/19 09:35 Dose: 40 mg Clopidogrel Bisulfate (Plavix Tab*) 75 mg PO DAILY [facility] Last Admin: 01/03/19 09:36 Dose: 75 mg Cyanocobalamin (Vitamin B12 Tab*) 1,000 mcg PO DAILY [facility] Last Admin: 01/03/19 09:36 Dose: 1,000 mcg Dextrose (D50w Syringe 50 Ml*) 12.5 gm IV PUSH .FOR FS < 60 - SS PRN PRN Reason: FS < 60 Docusate Sodium (Colace Cap*) 100 mg PO BID [facility] Last Admin: 01/03/19 09:36 Dose: 100 mg Heparin Sodium (Porcine) (Heparin Vial(*)) 5,000 units SUBCUT Q8HR [facility] Last Admin: 01/03/19 05:56 Dose: 5,000 units Insulin Human Lispro (Humalog*) 0 units SUBCUT ACHS [facility]; Protocol Last Admin: 01/03/19 12:30 Dose: Not Given Magnesium Hydroxide (Milk Of Magnesia Liq*) 30 ml PO BID PRN PRN Reason: CONSTIPATION Magnesium Oxide (Magox 400 Tab*) 400 mg PO BID [facility] Last Admin: 01/03/19 09:36 Dose: 400 mg Metoprolol Tartrate (Lopressor Tab*) 12.5 mg PO DAILY [facility] Last Admin: 01/03/19 09:37 Dose: 12.5 mg Nystatin (Nystatin Suspension*) 500,000 units PO QID [facility] Stop: 01/03/19 23:13 Last Admin: 01/03/19 14:12 Dose: Not Given Ondansetron HCl (Zofran Inj*) 4 mg IV Q4H PRN PRN Reason: NAUSEA/VOMITING Potassium Phos/Sodium Phos (Neutra Phos 250 Mg Xavier*) 250 mg PO TID [facility] Last Admin: 01/03/19 09:37 Dose: 250 mg Senna (Senokot Tab*) 1 tab PO BID [facility] Last Admin: 01/03/19 09:37 Dose: 1 tab Vital Signs 01/02/19 01/02/19 01/02/19 15:45 19:11 22:18 Temperature 98.0 F 98.3 F Pulse Rate 57 57 Respiratory 20 20 20 Rate Blood Pressure 143/50 155/57 (mmHg) O2 Sat by Pulse 97 96 95 Oximetry 01/02/19 01/03/19 01/03/19 23:01 03:07 07:34 Temperature 97.3 F 98.1 F 97.3 F Pulse Rate 59 67 71 Respiratory 20 20 16 Rate Blood Pressure 157/49 158/66 137/66 (mmHg) O2 Sat by Pulse 93 95 96 Oximetry 01/03/19 01/03/19 01/03/19 07:45 08:00 11:37 Temperature Pulse Rate 78 Respiratory 16 18 Rate Blood Pressure 132/64 (mmHg) O2 Sat by Pulse 94 94 Oximetry Intake and Output Last 24 Hours 01/01/19 01/02/19 01/03/19 01/04/19 06:59 06:59 06:59 06:59 Intake Total 1440 1320 800 960 Output Total 1400 790 200 Balance 40 1320 10 760 Intake: Oral 1440 1320 800 960 Output: Urine 1400 790 200 Other: Estimated Void Small Large Large Large Date of Last Bowel 01/01/19527081501/01/19 Movement # Bowel Movements 1 0 0 0 Estimated Stool Amount Small # Voids 3 1 2 3 Oxygen Devices in Use Now: None Neurology Exam: General: Well nourished, well developed, and in no acute distress HEENT: Normocephelic/atraumatic, sclera anicteric, mucous membranes moist Neck: Supple Extremities: No clubbing, cyanosis, or edema Neurological Findings: Awake, alert, and oriented to person, place, and time. He recognized me from yesterday. Speech: fluent without dysarthria, repetition intact Cranial Nerve: PERRL, EOM intact, he is very hard of hearing Motor: s/s throughout, proximal and distal extremities x4 tone/bulk normal Sensation: intact to LT/PP bilaterally upper and lower extremities Deep Tendon Reflex: trace throughout symmetric in the upper/lower extremities, Babinski - down going Finger to nose, rapid alternating movements intact without tremor, no dysdiadochokinesia Result Diagrams: 01/01/19 05:36 01/03/19 05:35 Additional Lab and Data: Laboratory Results - last 24 hr 01/01/19 01/02/19 01/02/19 21:36 08:18 11:15 POC Glucose (mg/dL) 196 H 127 H 163 H 01/02/19 17:25 POC Glucose (mg/dL) 144 H Microbiology and Other Data: Microbiology 12/27/18 19:57 Blood Venous Aerobic Blood Culture - Preliminary No Growth Day 4 12/27/18 19:57 Blood Venous Anaerobic Blood Culture - Preliminary No Growth Day 4 12/27/18 20:10 Blood Venous Aerobic Blood Culture - Preliminary No Growth Day 4 12/27/18 20:10 Blood Venous Anaerobic Blood Culture - Preliminary No Growth Day 4 12/27/18 20:35 Urine Urine Culture - Final No Growth (<1,000 CFU/mL) Assessment/Plan Mr. Romulo Bradley is an 88-year-old man who presented to [facility] [place], [place] for falls. He was found to have fevers and bradycardia. There were no reported seizures. He was also found to have a low normal vitamin B12 level. With appropriate supplementation, the patient seems to be improving. The etiology of the falls is unclear but syncope related to a cardiovascular vs vasovagal is high on the differential. He will be going to rehabilitation. We will be more than happy to see him for cognitive testing as an outpatient as there are concerns he may have mild cognitive impairment. I will sign off. Please contact us for any questions or concerns.
--- NOTE | 2019-01-03 17:59 | PN ---
Subjective Date of Service: 01/03/19 Interval History: Resting in bed on assessment. Reports he feels "well" today. Reports he walked the unit today. Looks forward to rehab. Denies cp, palpitations, sob, urinary symptoms, gi symptoms, dizziness. Past Medical History: Unchanged from Admission Objective Active Medications: Acetaminophen (Tylenol Tab*) 650 mg PO Q4H PRN PRN Reason: FEVER/PAIN Al Hydrox/Mg Hydrox/Simethicone (Maalox Plus*) 30 ml PO Q6H PRN PRN Reason: INDIGESTION Aspirin (Aspirin 81 Mg Chew Tab*) 81 mg PO DAILY [facility] Last Admin: 01/03/19 09:37 Dose: 81 mg Atorvastatin Calcium (Lipitor*) 40 mg PO DAILY [facility] Last Admin: 01/03/19 09:35 Dose: 40 mg Clopidogrel Bisulfate (Plavix Tab*) 75 mg PO DAILY [facility] Last Admin: 01/03/19 09:36 Dose: 75 mg Cyanocobalamin (Vitamin B12 Tab*) 1,000 mcg PO DAILY [facility] Last Admin: 01/03/19 09:36 Dose: 1,000 mcg Dextrose (D50w Syringe 50 Ml*) 12.5 gm IV PUSH .FOR FS < 60 - SS PRN PRN Reason: FS < 60 Docusate Sodium (Colace Cap*) 100 mg PO BID [facility] Last Admin: 01/03/19 09:36 Dose: 100 mg Heparin Sodium (Porcine) (Heparin Vial(*)) 5,000 units SUBCUT Q8HR [facility] Last Admin: 01/03/19 15:53 Dose: 5,000 units Insulin Human Lispro (Humalog*) 0 units SUBCUT ACHS [facility]; Protocol Last Admin: 01/03/19 17:35 Dose: 2 units Magnesium Hydroxide (Milk Of Magnesia Liq*) 30 ml PO BID PRN PRN Reason: CONSTIPATION Magnesium Oxide (Magox 400 Tab*) 400 mg PO BID [facility] Last Admin: 01/03/19 09:36 Dose: 400 mg Metoprolol Tartrate (Lopressor Tab*) 12.5 mg PO DAILY [facility] Last Admin: 01/03/19 09:37 Dose: 12.5 mg Nystatin (Nystatin Suspension*) 500,000 units PO QID [facility] Stop: 01/03/19 23:13 Last Admin: 01/03/19 15:53 Dose: 500,000 units Ondansetron HCl (Zofran Inj*) 4 mg IV Q4H PRN PRN Reason: NAUSEA/VOMITING Potassium Phos/Sodium Phos (Neutra Phos 250 Mg Xavier*) 250 mg PO TID [facility] Last Admin: 01/03/19 15:53 Dose: 250 mg Senna (Senokot Tab*) 1 tab PO BID [facility] Last Admin: 01/03/19 09:37 Dose: 1 tab Vital Signs - 8 hr 01/03/19 01/03/19 11:37 15:31 Temperature 98.5 F Pulse Rate 62 Respiratory 16 Rate Blood Pressure 136/52 (mmHg) O2 Sat by Pulse 94 97 Oximetry Oxygen Devices in Use Now: None Appearance: Comfortable, NAD Eyes: No Scleral Icterus, PERRLA Ears/Nose/Mouth/Throat: Mucous Membranes Moist Neck: NL Appearance and Movements; NL JVP Respiratory: Symmetrical Chest Expansion and Respiratory Effort, Clear to Auscultation Cardiovascular: NL Sounds; No Murmurs; No JVD, RRR, No Edema Abdominal: NL Sounds; No Tenderness; No Distention Lymphatic: No Cervical Adenopathy Extremities: No Edema Skin: No Rash or Ulcers Neurological: Alert and Oriented x 3, NL Muscle Strength and Tone Nutrition: Taking PO's Result Diagrams: 01/01/19 05:36 01/03/19 05:35 Additional Lab and Data: Laboratory Results - last 24 hr 01/02/19 01/03/19 01/03/19 22:27 05:35 08:09 Sodium 137 Potassium 4.5 Chloride 105 Carbon Dioxide 24 Anion Gap 8 BUN 13 Creatinine 0.93 Est GFR ( Amer) 92.6 Est GFR (Non-Af Amer) 76.5 BUN/Creatinine Ratio 14.0 Glucose 112 H POC Glucose (mg/dL) 127 H 129 H Calcium 10.1 Magnesium 2.0 01/03/19 01/03/19 12:28 16:43 Sodium Potassium Chloride Carbon Dioxide Anion Gap BUN Creatinine Est GFR ( Amer) Est GFR (Non-Af Amer) BUN/Creatinine Ratio Glucose POC Glucose (mg/dL) 108 H 154 H Calcium Magnesium Microbiology and Other Data: Microbiology 12/27/18 19:57 Blood Venous Aerobic Blood Culture - Final No Growth Day 5 12/27/18 19:57 Blood Venous Anaerobic Blood Culture - Final No Growth Day 5 12/27/18 20:10 Blood Venous Aerobic Blood Culture - Final No Growth Day 5 12/27/18 20:10 Blood Venous Anaerobic Blood Culture - Final No Growth Day 5 12/27/18 20:35 Urine Urine Culture - Final No Growth (<1,000 CFU/mL) Assess/Plan/Problems-Billing Mr. Romulo Bradley is an 88-year-old man who presented to [facility] [place] for falls. He was found to have fevers and bradycardia. There were no reported seizures. He was also found to have a low normal vitamin B12 level. With appropriate supplementation, the patient seems to be improving. The etiology of the falls is unclear but syncope related to a cardiovascular vs vasovagal is high on the differential. He will be going to rehabilitation. We will be more than happy to see him for cognitive testing as an outpatient as there are concerns he may have mild cognitive impairment. I will sign off. Please contact us for any questions or concerns. - Patient Problems (1) Confusion Comment: - Improving. - Secondary to fever and infection? - Neurology evaluated and recommends formal cognitive testing as outpatient. (2) Fall Comment: - Suspected mechanical, musculoskeletal or cardiac syncope - Noted to be bradycardic in the 40s on admission. - Noted to have occasional bpm of mid 40s today - Reports previous pain from thigh to knees bilaterally. Reports this has resolved. - Finger Stick AQC and HS to rule out hypoglycemia. No noted hypoglycemic episodes during stay. - Plan for LINQ placement as outpatient - Neurology consulting (3) Constipation Comment: - Resolved (4) Fever Comment: - BC and UC so far negative, and his CXR atelectasisi no infiltrate. - Fever improved on empirically ceftriaxone day # 3 - Ceftriaxone discontinued 12/29 given negative culture work up. Could have been viral? - Patient has been fever free since admission (5) UTI (urinary tract infection) Comment: - Initially ruled out due to negative culture and abx discontinued yesterday - Given c/o urinary symptoms yesterday UA repeated and no sign of infection. 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 On no medication at home - No hypoglycemia noted during stay. Mostly elevated BG - Hemoglobin A1c 7.6 - Consider starting Metformin on discharge (9) PVD (peripheral vascular disease) Comment: - Continue aspirin 81 mg daily, lipitor 40 mg HS, plavix 75 mg daily - Given his leg weakness and pain arterial doppler ordered and reveal bilat le arterial atherosclerotic disease without vessel occlusion - PT did see the patient and recommended continue PT and may benefit from Rehab. Will defer to manager case management (10) DVT prophylaxis Comment: - Hep 5000 Q8hrs Status and Disposition: Inpatient. Attending: Ingrid Singh
--- NOTE | 2019-01-04 01:36 | DS ---
Amended report to enter cosigning physician. CC: Dr. Ernestine Biggs; Dr. Sanchez; Dr. Roxanne Howard* DISCHARGE SUMMARY: DATE OF ADMISSION: 12/27/18 DATE OF DISCHARGE: 01/04/19 PRIMARY CARE PROVIDER: Dr. Ernestine Biggs. ATTENDING PHYSICIAN: Dr. Ingrid Singh* (dictated by Judith Rivera NP). PRIMARY DIAGNOSES: 1. Confusion. 2. Fall. 3. Back pain. 4. Coronary artery disease. 5. Diabetes. 6. Peripheral vascular disease. CONSULTATIONS WHILE IN THE HOSPITAL: 1. Dr. Sanchez from neurology. 2. Dr. Roxanne Howard from cardiology. STUDIES WHILE IN THE HOSPITAL: Chest x-ray: Impression: Mild densities of the lung bases could be due to hypoventilation changes versus atelectasis. The degree of variation has improved relative to most recent x-ray acquired on 09/07/18. EKG: Impression: Normal sinus rhythm, supraventricular bigeminy, right bundle - branch block, PACs. Transthoracic echo: Impression: Left ventricle: Wall thickness is mildly increased. The estimated ejection fraction is 50% to 55%. Akinesis of the basal inferior myocardium. Doppler parameters are consistent with abnormal left ventricular relaxation, grade 1 diastolic dysfunction. Right ventricle systolic function is normal. All valves show good function and trace insufficiency. Comparing with prior echocardiogram of 09/07/18, ejection fraction and inferior wall motion abnormality are stable, valve function is stable. Carotid artery Doppler study: Mild atherosclerotic disease with less than 50% bilateral internal carotid artery stenosis. Consider nonemergent followup thyroid ultrasound for characterization of a thyroid nodule. Duplex scan lower extremities: Impression: Bilateral lower extremity arterial atherosclerotic disease without vessel occlusion or visualized hemodynamic significant stenosis. Brain CT: Impression: No acute intracranial abnormality. Age-related atrophy and mild chronic small-vessel ischemic disease. DISCHARGE MEDICATIONS: Continued Home Medications: 1. Simvastatin 80 mg p.o. daily. 2. Plavix 75 mg p.o. daily. 3. Aspirin 81 mg p.o. daily. Changed Home Medications: 1. Metoprolol tartrate was changed from 25 mg p.o. daily to 12.5 mg p.o. daily. [place] Medications: 1. Vitamin B12 at 1000 mcg p.o. daily. 2. Colace 100 mg p.o. b.i.d. 3. Magnesium oxide 400 mg p.o. b.i.d. 4. Senokot 1 tab p.o. b.i.d. p.r.n. for constipation. HISTORY OF PRESENT ILLNESS/HOSPITAL COURSE: Mr. Bradley is an 88-year-old male with a past medical history significant for hypertension, CAD, diet-controlled diabetes who presents to the emergency room after having weakness and fall. Please see history and physical dictated by Elo Price MD, for complete summary of events leading up to hospitalization, but in short, the patient had 2 falls and his roommate was worried about him injuring himself; therefore, he called EMS. While in the emergency department, the patient was unable to recall the falls. On arrival, EMS noted that his sats were 88% on room air and he was febrile. While in the emergency room, the patient had labs, imaging, fluid bolus of 2200 mL of normal saline, Tylenol, vancomycin, cefepime. Given the patient's confusion and recent falls, hospitalists were asked to admit for further evaluation. The patient was admitted as it was suspected that his weakness and fall was secondary to infectious etiology with a fever. While admitted, bacterial sources of fever were ruled out as the patient had a normal chest x- ray and unremarkable UA and urine microbiology. In addition, while the patient was admitted, he was also evaluated by Cardiology because there was some concern that the patient's weakness and fall could be associated with an arrhythmia given his cardiac history. The patient's beta yamileth was decreased from 25 mg daily to 12.5 mg daily and he has not had any episodes of syncope or falls while admitted. Initially, he was noted to have bradycardia into the 40s on telemetry, but with this change the majority of his heart rates are above 60 with an occasional dip into the mid 40s. Cardiology also recommends a LINQ recorder be placed as an outpatient. Son expressed concern given the patient's level of confusion at times; therefore, Dr. Sanchez from neurology was consulted. Dr. Sanchez suggests the patient might have some mild cognitive impairment and recommends formal cognitive testing as an outpatient. In addition, Dr. Sanchez did find evidence of neuropathy on his exam. The patient was also noted to have a slightly low B12. 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 The patient will be supplemented for vitamin B12. The patient was evaluated by physical therapy, who recommended that the patient would benefit from a short stay in the subacute rehab in order to get stronger and return home. The patient is stable for discharge to [facility] today. REVIEW OF SYSTEMS: A 14-point review of systems was completed and all were negative. VITAL SIGNS: temp 97.1, HR 76, BP 155/76, RR 18, O2 Sat 96% RA PHYSICAL EXAM: General: Mr. Bradley is an 88-year-old male who is sitting in the chair, appears to be in no acute distress, appears his stated age. HEENT: EOMs intact. PERRLA. Oral mucosa is moist without lesions. Posterior pharynx is clear. Neck: Supple. No lymphadenopathy. Respiratory: Lungs are clear to auscultation. No wheezes, rhonchi, or rubs. Good aeration. Cardiac: S1, S2 present. No murmurs, rubs, or gallops. Regular rate and rhythm. Abdomen: Soft, nontender. Bowel sounds normoactive. Extremities: No edema. No clubbing or cyanosis. Pedal pulses 2+ bilaterally. Musculoskeletal: No pain or deformities. Skin: Grossly intact. Neuro: Cranial nerves II through XII grossly intact. Sensation intact. Coordination intact. No drift. Strength is 5/5 in the upper and lower extremities. DIAGNOSTIC STUDIES/LAB DATA: Laboratory Data: WBC 6.4, hemoglobin 12.8, hematocrit 39, platelets 218. Sodium 137, potassium 4.5, chloride 105, carbon dioxide 24, BUN 13, creatinine 0.93, glucose 112, magnesium 2.0. DISCHARGE PLAN/FOLLOWUP: 1. Confusion: As mentioned above, the patient was initially moderately confused on admission which is suspected to have been secondary to a possible viral infection. Confusion has improved with IV fluids and supportive care. The patient is still not at his baseline per his son. The patient was evaluated by neurology and should follow up with them as an outpatient for formal cognitive testing. 2. Fall: We suspect the patient's fall was multifactorial and could be related to neuropathy, bradycardia, and viral infection. As mentioned above, the patient's metoprolol has been adjusted to avoid bradycardia. As for neuropathy, the patient will be going to rehab to work on strength and safe gait. 3. Diabetes: The patient had routine fingersticks while here in the hospital to rule out hypoglycemia. The patient had no episodes of hypoglycemia and in fact, his fingersticks have been elevated. The patient had hemoglobin A1c, which revealed 7.6. Given this, I would recommend discussing starting the patient on metformin with his primary care. He should follow up with his primary care provider for repeat hemoglobin A1c in 3 months. 4. Bradycardia: As mentioned above, the patient was noted to have bradycardia on telemetry. His metoprolol was decreased from 25 mg to 12.5 mg daily. He was evaluated by Dr. Howard. The patient should follow up with Dr. Howard as an outpatient for possible LINQ placement. 5. CAD: The patient should continue his aspirin, Lipitor, Plavix, Lopressor. The patient should follow up with cardiology as mentioned above. 6. PVD: The patient should continue his aspirin, Lipitor, Plavix. The patient should participate in physical therapy at rehab. 7. Thyroid Nodule: There was an incidental finding of a thyroid nodule on patient's carotid ultrasound. Radiologist recommended a nonemergent followup thyroid ultrasound for characterization of a thyroid nodule. This will be deferred to patient's Primary Care Provider 7. Followup: As mentioned above, the patient should follow up with Dr. Sanchez at his convenience for further formal cognitive testing. The patient should follow up with his primary care in 1 to 2 weeks and schedule a Thyroid Ultrasound as mentioned above. 8. Education: The patient was educated on signs and symptoms of new or worsening condition and when to return to the emergency department. TIME SPENT: Approximately 45 minutes were spent on this discharge, greater than half of the time was spent [id number] with the patient discussing discharge plans and instructions. This is a summarized report of a complex medical history and hospital stay. For further details, please see the entire medical record. Plan: This plan was discussed with my attending, Dr. Singh, who agrees with my plan of care. Reviewed by JUDITH RIVERA NP 01/08/19 [id number] [id number]/[facility] #: [id number] RACIEL
[2019-01-04] MEDS: Heparin VIAL(*) 5000 UNITS/ML VIAL (FIVE THOUSAND) SUBCUT SCH (05:04)
[2019-01-04] MEDS: Insulin LISPRO* 1 UNITS UNIT SUBCUT SCH ×2 (08:14→08:25)
[2019-01-04 09:04] VITALS: BP 155/76
[2019-01-04] MEDS: Metoprolol Tartrate TAB* 25 MG PO SCH (10:10)
[2019-01-04] MEDS: Clopidogrel TAB* 75 MG PO SCH (10:11)
[2019-01-04] MEDS: Cyanocobalamin TAB* 500 MCG PO SCH (10:11)
[2019-01-04] MEDS: Potassium & Sodium Phos 250MG* = 1 PACKET PO SCH (10:11)
[2019-01-04] MEDS: Magnesium Oxide TAB* 400 MG PO SCH (10:13)
[2019-01-04] MEDS: Atorvastatin* 40 MG TAB PO SCH (10:14)
[2019-01-04] MEDS: Aspirin 81 mg CHEW TAB* 81 MG TAB.CHEW PO SCH (10:14)
[2019-01-04] MEDS: Docusate CAP* 100 MG PO SCH (10:14)
[2019-01-04] MEDS: Senna TAB PO SCH (10:14)
== END 2019-01-04 10:45 | DRG 866 ==
LOC: ED 19:04 → MED 22:58 → OBSVTOIN 12-28 14:00
PROVIDERS: ADMIT Pediatrics; ATTEND Internal Medicine
DX: B34.9 Viral infection, unspecified (principal); B37.0 Candidal stomatitis; J98.11 Atelectasis; R00.1 Bradycardia, unspecified; E11.40 Type 2 diabetes mellitus with diabetic neuropathy, unspecified; I25.10 Atherosclerotic heart disease of native coronary artery without angina pectoris; E78.5 Hyperlipidemia, unspecified; E11.51 Type 2 diabetes mellitus with diabetic peripheral angiopathy without gangrene; I10 Essential (primary) hypertension; W17.89XA Other fall from one level to another, initial encounter; K59.00 Constipation, unspecified; I65.23 Occlusion and stenosis of bilateral carotid arteries; E04.1 Nontoxic single thyroid nodule; I25.5 Ischemic cardiomyopathy; M47.816 Spondylosis without myelopathy or radiculopathy, lumbar region; I08.1 Rheumatic disorders of both mitral and tricuspid valves; R09.02 Hypoxemia; M54.9 Dorsalgia, unspecified; I45.10 Unspecified right bundle-branch block; Y92.89 Other specified places as the place of occurrence of the external cause; Z97.4 Presence of external hearing-aid; Z87.891 Personal history of nicotine dependence; I25.2 Old myocardial infarction; Z95.5 Presence of coronary angioplasty implant and graft; Z79.02 Long term (current) use of antithrombotics/antiplatelets; Z79.82 Long term (current) use of aspirin
CPT/HCPCS: 36415; 70450; 71046; 80048; 80053; 81003; 81015; 82607; 83036; 83605; 83735; 84100; 84439; 84443; 84484; 85025; 85610; 85652; 85730; 86140; 87040; 87086; 93005; 93306; 93880; 93925; 99285; A9270-GY; G8978-GP-CJ; G8979-GP-CI; J0692; J0696; J1644; J3370; J3420; J3475